=== PATIENT | female | born 1950 | race African-American/Black ===

== ENCOUNTER 2016-09-14 15:34 | Observation (INO) | payer OTHER ==
--- NOTE | ~2016-09-14 | HP ---
History And Physical [id number] [place]. [address] NAME: GABRIELA STEVENS : 48 STATUS : ADM Mayito PAT#: [id number] AGE: 65 ADM/REG DATE : 09/15/16 MR#: [id number] REPORT SERV DATE: 09/15/16 DICTATED BY: MARÍA QUICK DATE: 09/15/16 REPORT STATUS : Draft TRANSCRIBED BY: GALEN DATE: 09/15/16 DATE OF ADMISSION: 09/15/2016 CHIEF COMPLAINT: A 65-year-old female presenting with right arm paresthesias, right leg weakness, and blurry vision. HISTORY OF PRESENT ILLNESS: The patient's history was obtained through careful interview with the patient, coupled with review of [facility] medical records. The patient states "I have been feeling bad for two years." She states she has had urinary tract infections, coronary artery disease, and strokes. She has been evaluated at [facility] through these last two years for various problems as mentioned above. But it was just at 1:30 in the afternoon leading up to the day of admission that she developed right arm paresthesias and then increasing right arm weakness. She states that she has been unable to hold anything heavier than a glass of water and then she has had a gait disturbance with subjective right leg paresthesias and weakness as well. She thinks that she has had a slight facial droop on the right side with a numbness feeling on the right side as well. She states she has had blurriness of vision, but no double vision, no dysarthria, no dysphagia. She describes a headache around the back of her right head radiating up into her right jehovah's witness into her forehead, mostly behind the ear, a throbbing quality, 9/10 severity. No chest pain. No shortness of breath. No cough. No fevers or chills. REVIEW OF SYSTEMS: Otherwise, a 14-point review of systems was obtained and was negative. PAST MEDICAL HISTORY: 1. Stroke. 2. Hypertension. 3. Elevated cholesterol. 4. Diabetes. 5. Coronary artery disease, but she does not believe she has had a stent placed. 6. Seizure disorder, on Keppra. PAST SURGICAL HISTORY: 1. Back tumor removed x2. 2. Cervical spine surgery x2. 3. Lumbar spine fusion. 4. Shoulder surgery. 5. Wrist surgery for "a Bible knot". History And Physical [address] [address] NAME: GABRIELA STEVENS : [birth year] STATUS : ADM Mayito PAT#: [id number] AGE: 65 ADM/REG DATE : 09/15/16 MR#: [id number] REPORT SERV DATE: 09/15/16 DICTATED BY: MARÍA QUICK DATE: 09/15/16 REPORT STATUS : Draft TRANSCRIBED BY: GALEN DATE: 09/15/16 ALLERGIES: TO SULFA. SOCIAL HISTORY: The patient smokes cigarettes. Quit alcohol. Lives with a niece. No children. FAMILY HISTORY: Diabetes, heart disease, stroke, and alcoholism. CURRENT MEDICATIONS: 1. Eliquis 5 mg p.o. b.i.d. 2. Iron supplement. 3. Lasix 20 mg p.o. daily. 4. Neurontin 600 mg p.o. t.i.d. 5. Hydrocodone eyedrops. 6. Keppra 500 mg in the morning and 1000 mg at bedtime. 7. Lisinopril 40 mg p.o. daily. 8. Lopressor 50 mg p.o. b.i.d. 9. Prilosec 40 mg p.o. daily. 10.Zofran p.r.n. 11.Potassium 10 mEq every other day. 12.Zoloft 50 mg p.o. daily. 13.Zocor 40 mg p.o. daily. 14.Zanaflex at bedtime. 15.Topamax 50 mg at bedtime. PHYSICAL EXAMINATION: VITAL SIGNS: Temperature 98.6, pulse 54, blood pressure 179/91, respiratory rate 16, and O2 saturation 100% on room air. GENERAL: A pleasant, cooperative female, in no evidence of acute distress. NEUROLOGICAL: Cranial nerves 2 through 12 are intact and symmetrical on my exam. The patient has 4/5 strength in the right upper extremity compared to 5/5 strength in the left upper extremity. She has 5/5 strength in lower extremities that are symmetrical. She has 2+ deep tendon reflexes in upper and lower extremities that are symmetrical. HEENT: Pupils equal, round, and reactive to light. No conjunctival pallor. No scleral icterus. Nares are patent. Oropharynx is clear of obstruction. Moist mucous membranes. NECK: Trachea midline. No thyromegaly. LYMPH: No cervical lymphadenopathy. No supraclavicular lymphadenopathy. RESPIRATORY: Clear to auscultation at bases. No wheezes, rales, or rhonchi. Normal respiratory effort. CARDIOVASCULAR: Bradycardic, regular rhythm. No murmurs, rubs, or gallops. No extremity edema is appreciated. ABDOMEN: Soft, nontender, and nondistended. Normal bowel sounds auscultated throughout. No hepatosplenomegaly. DERMATOLOGICAL: Warm and dry extremities. No pallor. No cyanosis. PSYCHIATRIC: Normal affect. Good mood. Alert and oriented x3. LABORATORY DATA: White blood cell count 6.0, hemoglobin 10, hematocrit 36, and platelets History And Physical [address] [address] NAME: GABRIELA STEVENS : [birth year] STATUS : ADM Mayito PAT#: [id number] AGE: 65 ADM/REG DATE : 09/15/16 MR#: [id number] REPORT SERV DATE: 09/15/16 DICTATED BY: MARÍA QUICK DATE: 09/15/16 REPORT STATUS : Draft TRANSCRIBED BY: MODAshish DATE: 09/15/16 136. Sodium 144, potassium 3.3, chloride 110, bicarb 27, BUN 14, creatinine 0.82, and glucose 93. INR 1.5. Troponin negative. STUDIES: 1. Chest x-ray by my own evaluation shows no acute cardiopulmonary process. 2. EKG by my own evaluation shows sinus bradycardia, premature atrial complexes, left axis deviation. 3. CT scan of the brain without contrast shows no acute intracranial process. 4. CT scan of the abdomen and pelvis shows no acute intraabdominal process. ASSESSMENT AND PLAN: 1. Transient ischemic attack with right-sided paresthesias and weakness. The patient is on Eliquis. Obtain a Neurology consult. Check an MRI of the brain, MRA of the carotids. Check an echocardiogram. Check fasting lipid panel. Check telemetry. 2. Diabetes. Check hemoglobin A1c. Place on sliding scale insulin. 3. History of coronary artery disease. Request records from [facility]. NATY/MODL María Quick M.D. / [id number] CC: Maia Valverde MD
--- NOTE | ~2016-09-14 | DS ---
Discharge Summary [id number] [place]. [address] NAME: GABRIELA STEVENS : 48 STATUS : DIS Mayito PAT#: [id number] AGE: 65 ADM/REG DATE : 09/15/16 MR#: [id number] REPORT SERV DATE: 09/18/16 DICTATED BY: DATE: REPORT STATUS : Draft TRANSCRIBED BY: MODL DATE: 09/17/16 ADMISSION DATE: 09/15/2016 DISCHARGE DATE: 09/17/2016 DISCHARGE DIAGNOSES: 1. Transient ischemic attack, history of old cerebrovascular accident. 2. Hypertension. 3. Bradycardia. 4. Vitamin D deficiency. 5. History of atrial fibrillation. 6. Hypokalemia. 7. Anemia. 8. Diabetes mellitus type 2. 9. History of rapid weight loss. 10.Migraines. CONSULTATIONS: Neurology, Nathaly Bill and Dr. Sommers. PROCEDURES AND IMAGIN. 09/14/2016, chest PA and lateral showed no acute cardiopulmonary process. 2. 09/14/2016, CT of the brain without contrast showed atrophy with evidence for old left cerebellar infarct. 3. 09/14/2016, CT of the abdomen and pelvis without contrast showed no high-grade GI or obstruction. Question significance of some mildly radiopaque material within the stomach, whether this represents simply ingested food or medication versus evidence for some bleeding into the stomach. 4. 09/15/2016, MRI of the brain with MRI and MRA of the neck with contrast showed no acute finding in the brain parenchyma. Prior infarcts, left cerebellar hemisphere without other abnormalities. Very limited MRA of the [place] due to motion. There is a 50% stenosis of the right distal ICA and left M2 inferior branch stenosis. No significant stenosis in the neck. 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 5. 09/16/2016, MRI of the cervical spine with and without contrast showed small midline herniation at C4-C5. Fairly marked compression of the exiting left C7 nerve root secondary to spondylolytic changes. Small amount of spondylolytic encroachment at C5- C6 into the left neural foramina, could explain intermittent left C6 root pathology. HOSPITAL COURSE: Please refer to the H and P on 09/15/[address] Jeff Meehan for complete details regarding the patient's admission. In brief, the patient was admitted by Dr. Meehan for an initial workup and management of her right arm paresthesias and right leg weakness as well as blurry vision. The patient had developed some right arm paresthesia and then increasing right arm weakness on the day prior to admission. States she has also had some gait disturbance with right leg paresthesia and weakness as well. The patient is on Eliquis for chronic atrial fibrillation. The patient has a history of chronic migraines for which she is on Keppra, Topamax, Neurontin, and Discharge Summary [address] [address] NAME: GABRIELA STEVENS : 48 STATUS : DIS Mayito PAT#: [id number] AGE: 65 ADM/REG DATE : 09/15/16 MR#: [id number] REPORT SERV DATE: 09/18/16 DICTATED BY: DATE: REPORT STATUS : Draft TRANSCRIBED BY: MODL DATE: 09/17/16 hydrocodone. The patient states she had a history of rapid weight loss due to extensive nausea and vomiting prior to 08/20/2016. At that time, the patient was referred to GI, who started her on Zofran, and the patient states she has only had two episodes of nausea and vomiting since then and has started to gain weight again. The patient has had extensive imaging due to her TIA, rule out old CVA. Neurology was researching her possible hemiparesis versus her complicated migraines. It was determined that the most likely cause for her hemiparesis was complicated migraines. She has increased her Topamax to 100 mg at bedtime. Is recommending changing Keppra to Depakote. She also recommends to continue beta patel and follow up with Dr. Alicea on an outpatient basis. The patient does have vitamin D deficiency with her vitamin D level being 11. The patient was given an initial bolus dose and is recommending for the patient to be on 50,000 units every seven days. The patient's phosphorus is 4.0, alkaline phosphatase is 99, PTH is 36.5. The patient has a history of atrial fibrillation, for which she is on Eliquis and high-dose beta patel. This causes the patient to have bradycardia in the low 50s. During this time, the patient was also experiencing hypertension. Catapres patch of 0.2 mg was placed on the patient's arm and the patient was still receiving hydralazine IV on a regular basis. The blood pressure at that time was in the high 170s to 180s over 100. The patient has since been started on amlodipine 5 mg daily and blood pressure has been maintaining in the 160s systolically. The patient also was experiencing hypokalemia during her stay. We have increased her home dose of 10 mEq of potassium every other day to daily. The patient has a baseline anemia of 10.2 with hematocrit of 33.8. The patient has a history of diabetes mellitus type 2 for which she takes no medication. A1c is 5.5. PHYSICAL EXAMINATION: The patient states no numbness or tingling today. Chronic back pain is 3/10 with minimal headache. VITAL SIGNS: Blood pressure is 166/93, O2 saturation is 98% on room, temperature is 97.7, heart rate is 49, respirations are 11. HEENT: Head is atraumatic, normocephalic. Pupils are equal, round, reactive to light and accommodation. Sclerae are clear and nonicteric. NECK: Supple with no obvious lymphadenopathy or thyromegaly. Neck veins are flat. CARDIAC: The patient has a bradycardic rhythm with no obvious murmurs, rubs, or gallops. LUNGS: Clear to auscultation with normal respiratory effort. GI: Abdomen is soft and nontender with active bowel sounds in all four quadrants. Normal bowel habitus. No palpable organomegaly. EXTREMITIES: No significant edema, clubbing, or cyanosis. Dorsalis pedis and posterior tibial pulses are palpable bilaterally. MUSCULOSKELETAL: Moves all extremities x4. She is ambulatory with a cane. SKIN: Skin is warm and dry with normal color and turgor. NEURO/PSYCH: The patient is alert and oriented x4, pleasant cooperative. Cranial nerves II through XII are grossly intact. DISCHARGE MEDICATIONS: Amlodipine 5 mg p.o. daily; Eliquis 5 mg every 12 hours; vitamin D 50,000 units every seven days, last dose was 09/16/2016; ferrous sulfate 325 mg daily; Lasix 20 mg daily; gabapentin 600 mg three times daily; Keppra mg every morning and 1000 mg after supper; Xalatan one drop in both eyes at bedtime, lisinopril 40 mg before Discharge [address] [place]. [address] NAME: GABRIELA STEVENS : 48 STATUS : DIS Mayito PAT#: [id number] AGE: 65 ADM/REG DATE : 09/15/16 MR#: [id number] REPORT SERV DATE: 09/18/16 DICTATED BY: DATE: REPORT STATUS : Draft TRANSCRIBED BY: MODAshish DATE: 09/17/16 lunch; Lopressor 50 mg twice daily, hold for heart rate less than or equal to 50; omeprazole 40 mg daily; potassium chloride 10 mEq daily; Zoloft 50 mg daily; Zocor 40 mg daily; Zanaflex 8 mg daily; Topamax 100 mg daily; [place] 10/325 one tablet twice daily as needed for pain; Zofran 4 mg q.6 hours p.r.n. nausea and vomiting. ALLERGIES: THE PATIENT HAS AN ALLERGY TO SULFA, PINEAPPLE, AND STRAWBERRIES. DISCHARGE INSTRUCTIONS: The patient is to follow up with her PCP, Dr. Carr, in the next week. The patient is also to follow up with neurologist, Dr. Alicea, within the next week. Should the patient develop any more weakness or change in gait or extremes in headache or have any other signs and symptoms or falls, she is to call her PCP or Dr. Alicea or to present to the ER. Approximately 40 minutes has been spent coordinating discharge care of this patient including [id number] encounter and summarization of this discharge. LEANNA/GALEN Pili Lind NP / [id number] CC: Maia Yap MD
--- NOTE | ~2016-09-14 | CN ---
Consultation Report [facility] [address] [place]. [address] NAME: GABRIELA STEVENS : 48 STATUS : ADM Mayito PAT#: [id number] AGE: 65 ADM/REG DATE : 09/15/16 MR#: [id number] REPORT SERV DATE: 09/15/16 DICTATED BY: NATHALY CASTILLO DATE: 09/15/16 REPORT STATUS : Draft TRANSCRIBED BY: MODAshish DATE: 09/15/16 NEUROLOGY CONSULTATION DATE OF CONSULTATION: 09/15/2016 REASON FOR CONSULTATION: TIA. NEUROLOGIST: Dr. Sommers. HOSPITALIST: Dennis Hannon M.D. TOOL AND DIE MAKER/DESIGNER: Yan Juarez D.O. HISTORY OF PRESENT ILLNESS: The patient is a 65-year-old female, who has had intermittent numbness and weakness on her right side for approximately two months. She states that this numbness is intermittent. It will affect her right arm and right leg and of the right side of her face. It will last anywhere from one minute to approximately 10 minutes and then resolve. Sometimes, it is more profound and it is associated with irregular and rapid heartbeat. She does have a history of atrial fibrillation. She denies any ataxia. She denies any dysarthria or visual changes. At times, she will have slight expressive aphasia. The patient finally went to see her PCP and he suggested that she go to the emergency department for further evaluation and treatment. She went to [facility] and had some testing done, which came back negative for stroke. Still her symptoms persisted, so she came to [facility] Emergency Department, and was admitted to the clinical decision unit. The patient states that she has felt bad for two years. Over the last 40 days, she has lost 62 pounds. The patient also mentions that she has a history of migraines. She is on Keppra, Topamax, and Neurontin for migraine prevention. She does not take any prescription medications for abortive therapy. She tries to avoid using any over the counter medications for abortive therapy. She denies any history of seizure. PAST MEDICAL HISTORY: Left cerebellar stroke, hypertension, hyperlipidemia, diabetes mellitus, coronary artery disease, migraine headaches, cigarette abuse, atrial fibrillation, and obstructive sleep apnea (patient noncompliant with CPAP), obesity. PAST SURGICAL HISTORY: "Back tumor removal x2" (type unknown), cervical spine surgery x2, lumbar fusion, and rotator cuff repair. MEDICATIONS: Home medication list includes Eliquis 5 mg b.i.d., ferrous sulfate 325 mg q.a.m., Lasix 20 mg q.a.m., Neurontin 600 mg t.i.d., [place] 10/325 mg b.i.d. p.r.n., Xalatan ophthalmic solution 0.005% each eye at bedtime, Keppra 500 mg in the morning and 1000 mg at Consultation Report [id number] [place]. [address] NAME: GABRIELA STEVENS : 48 STATUS : ADM Mayito PAT#: [id number] AGE: 65 ADM/REG DATE : 09/15/16 MR#: [id number] REPORT SERV DATE: 09/15/16 DICTATED BY: NATHALY CASTILLO DATE: 09/15/16 REPORT STATUS : Draft TRANSCRIBED BY: GALEN DATE: 09/15/16 night, lisinopril 40 mg q.a.m., Lopressor 50 mg b.i.d., Prilosec 40 mg q.a.m., Zofran ODT 4 mg q.6 hours p.r.n., Klor-Con 10 mEq every other day, Zoloft 50 mg q.a.m., Zocor 40 mg at bedtime, Zanaflex 8 mg at bedtime, and Topamax 50 mg at bedtime. ALLERGIES: SULFA, PINEAPPLE, AND STRAWBERRY. SOCIAL HISTORY: The patient is single. She has no children. She lives with her niece. She is a smoker. She has a history of alcohol abuse and does not use illicit drugs. FAMILY HISTORY: The patient's mother from an [place]; she was diabetic. Her father had TB; he also had history of alcohol abuse. She has 12 siblings; she was the baby. REVIEW OF SYSTEMS: For pertinent positives, please refer to HPI. PHYSICAL EXAMINATION: VITAL SIGNS: The patient is a 65-year-old female, who stands 5 feet 10 inches tall and weighs 202 pounds. She is afebrile. Heart rate 58, respiratory rate 10, O2 saturations on 2 L nasal cannula 100%, blood pressure 164/84. NEURO: The patient is alert. She is oriented x4. She communicates appropriately. Speech is clear. Language is fluent. There is no dysarthria, no aphasia. Pupils are 4 mm. PERRLA. Cranial nerves 2 through 12 are relatively intact. However, the patient does report diminished sensation on the right side of her face compared to the left. There is no facial droop. No tongue deviation. Vision via confrontation is full in both lyons. [id number], no ataxia. [id number], no ataxia. There is very mild pronator drift on the right. No tremor, dysmetria, asterixis, or dysdiadochokinesis. Upper extremity strength is 4/5 on the right compared to the left which is 5/5. Upper DTRs are 2+ bilaterally. The patient does report diminished sensation on the right when compared to the left. Lower extremity strength is a 4/5 on the left and 3/5 on the right. Lower extremity DTRs are 2+ bilaterally. Downgoing toes. The patient reports diminished sensation on the right when compared to the left. NECK: No carotid bruits or JVD. No thyromegaly. CHEST: Lung sounds relatively clear. Diminished in the bases. CARDIAC: Regular rate and rhythm. No murmur, click, gallop, or rub. LABORATORY DATA: CBC is normal. Platelets mildly low at 137. BMP: Potassium is 3.6. Cholesterol values: Total cholesterol 126, HDL 24, LDL 77, and triglycerides 127. A1c 5.5. CT of the brain, no acute changes. There is an old left cerebellar infarction. NIH stroke scale is a total score of 3. ASSESSMENT/PLAN: 1. Probable stroke. The patient will undergo an MRI of the brain without gadolinium and an MRA of the head and neck. She will have an echocardiogram with bubble study. PT/OT will be consulted. The patient will have a bedside dysphagia screen. If she fails this, then Speech Therapy will be consulted. She will have additional lab work. Case Consultation Report [address] [place]. [address] NAME: GABRIELA STEVENS : 48 STATUS : ADM Mayito PAT#: [id number] AGE: 65 ADM/REG DATE : 09/15/16 MR#: [id number] REPORT SERV DATE: 09/15/16 DICTATED BY: NATHALY CASTILLO DATE: 09/15/16 REPORT STATUS : Draft TRANSCRIBED BY: GALEN DATE: 09/15/16 Management will be consulted for the possibility of rehabilitation. She will continue her Eliquis 5 mg b.i.d., aspirin 81 mg daily will be added, and her Zocor will be increased to 80 mg at bedtime. 2. Migraine. The patient will continue her preventative medication. I did talk to her about rebound headache from taking narcotics on a daily basis and avoidance of over-the- counter abortive medication. 3. Atrial fibrillation. The patient will follow up with Dr. Juarez on an outpatient basis. Currently, she is in normal sinus rhythm. Thank you again for including us in consultation. We will continue to follow with you. CHRISSY/GALEN Nathaly Castillo DNP, ACNP-BC / [id number] CC: Maia Valverde MD
[2016-09-14 16:34] LABS: BASOPHILS 0.5 %; BASOPHILS ABSOLUTE 0.03 10/3/uL (0.0-0.16); EOSINOPHILS 3.2 %; EOSINOPHILS ABSOLUTE 0.19 10/3/uL (0.0-0.53); ER CBC TAT 0 Hrs 14 Mins; HEMOGLOBIN 10.3 g/dL (12.0-16.0); IMMATURE GRANULOCYTES 0.2 %; IMMATURE GRANULOCYTES ABSOLUTE 0.01 10/3/uL (0.0-0.11); LYMPHOCYTES 34.6 %; LYMPHOCYTES ABSOLUTE 2.08 10/3/uL (0.67-4.30); MEAN CORPUSCULAR HEMOGLOB 23.3 pg (26.0-34.0); MEAN CORPUSCULAR VOLUME 80.1 fL (80-100); MONOCYTES ABSOLUTE 0.54 10/3/uL (0.21-1.20); NEUTROPHILS 52.5 %; NEUTROPHILS ABSOLUTE 3.17 10/3/uL (2.02-8.40); PLATELET COUNT 136 10/3/uL (150-400); RBC DISTRIBUTION WIDTH 23.5 % (12.0-16.0); RED CELL COUNT 4.43 10/6/uL (4.0-5.6)
[2016-09-14 16:36] LABS: PARTIAL THROMBO TIME 33.2 SEC (22.5-37.2)
[2016-09-14 16:37] LABS: INTERNATIONAL NORMAL RATI 1.5 UNITS (-); PROTIME (NOT ORD) 18.2 SEC (12.0-14.5)
[2016-09-14 16:41] LABS: HEMATOCRIT 35.5 % (36.0-48.0); MANUAL DIFF NO %
[2016-09-14 16:44] LABS: BUN (BLOOD UREA NITROGEN) 14 MG/DL (6-23); CALCIUM, SERUM 9.1 MG/DL (8.5-10.4); CHEST PAIN PROFILE TAT 0 Hrs 24 Mins; CHLORIDE, SERUM 110 MMOL/L (96-112); CO2 (CARBON DIOXIDE) 27 MMOL/L (24-34); CREATININE 0.82 MG/DL (0.55-1.02); GFR AFRICAN AMERICAN 86 ML/MIN (>=60); GFR NON AFRICAN AMERICAN 75 ML/MIN (>=60); GLUCOSE, SERUM 93 MG/DL (60-99); POTASSIUM, SERUM 3.3 MMOL/L (3.5-5.3); SODIUM, SERUM 144 MMOL/L (135-148); TROPONIN I <0.02 NG/ML (<0.05)
[2016-09-14 17:17] LABS: PLATELET ESTIMATE SLT DEC (ADEQUATE); PLATELET SATELLITISM FEW
[2016-09-14] MEDS ORDERED: NEUR600 PO (21:03)
[2016-09-14] MEDS ORDERED: KEPPRA500 PO ×2 (21:04)
[2016-09-14] MEDS ORDERED: ZOL50 PO (21:04)
[2016-09-14] MEDS ORDERED: LISINOPRIL40 MG PO (21:05)
[2016-09-14] MEDS ORDERED: ELIQUIS 5 MG TAB5 MG PO (21:06)
[2016-09-14] MEDS ORDERED: FERROUS SULF325 M1 PO (21:07)
[2016-09-14] MEDS ORDERED: ZANAFLEX 4 MG TA4 MG PO (21:08)
[2016-09-14] MEDS ORDERED: NORCO1 TAB PO (21:08)
[2016-09-14] MEDS ORDERED: TOPAMAX50 MG PO (21:09)
[2016-09-14] MEDS ORDERED: PRILOSEC40 MG PO (21:09)
[2016-09-14] MEDS ORDERED: ZOFRAN ODT4 MG PO (21:10)
[2016-09-14] MEDS ORDERED: LOP50 PO (21:11)
[2016-09-14] MEDS ORDERED: XALAT OPH (21:12)
[2016-09-14] MEDS ORDERED: KDUR10 PO (21:14)
[2016-09-14] MEDS ORDERED: L20 PO (21:15)
[2016-09-14] MEDS ORDERED: ZOCOR40 PO (21:15)
[2016-09-15 04:41] LABS: BASOPHILS 0.4 %; BASOPHILS ABSOLUTE 0.03 10/3/uL (0.0-0.16); EOSINOPHILS 3.8 %; EOSINOPHILS ABSOLUTE 0.26 10/3/uL (0.0-0.53); HEMATOCRIT 32.8 % (36.0-48.0); HEMOGLOBIN 9.7 g/dL (12.0-16.0); IMMATURE GRANULOCYTES 0.1 %; IMMATURE GRANULOCYTES ABSOLUTE 0.01 10/3/uL (0.0-0.11); LYMPHOCYTES 32.8 %; LYMPHOCYTES ABSOLUTE 2.25 10/3/uL (0.67-4.30); MEAN CORPUS HGB CONC 29.6 g/dL (32.0-36.0); MEAN CORPUSCULAR HEMOGLOB 23.7 pg (26.0-34.0); MEAN CORPUSCULAR VOLUME 80.2 fL (80-100); MONOCYTES 8.9 %; MONOCYTES ABSOLUTE 0.61 10/3/uL (0.21-1.20); PLATELET COUNT 137 10/3/uL (150-400); RBC DISTRIBUTION WIDTH 23.4 % (12.0-16.0); RED CELL COUNT 4.09 10/6/uL (4.0-5.6); WHITE BLOOD CELLS 6.9 10/3/uL (4.5-10.5)
[2016-09-15 04:42] LABS: MANUAL DIFF NO %
[2016-09-15 04:49] LABS: INTERNATIONAL NORMAL RATI 1.3 UNITS (-); PARTIAL THROMBO TIME 32.2 SEC (22.5-37.2); PROTIME (NOT ORD) 16.3 SEC (12.0-14.5)
[2016-09-15 05:04] LABS: A/G RATIO 0.9 (0.7-1.9); ALBUMIN 3.1 G/DL (3.5-5.0); BUN (BLOOD UREA NITROGEN) 12 MG/DL (6-23); CALCIUM, SERUM 8.6 MG/DL (8.5-10.4); CHLORIDE, SERUM 111 MMOL/L (96-112); CHOL/HDL RATIO(NOT ORDER) 5.3 (0-5); CHOLESTEROL 126 MG/DL (< 200); CO2 (CARBON DIOXIDE) 27 MMOL/L (24-34); CPK (IF ELEVATED MB BANDS) 60 U/L (0-200); CREATININE 0.77 MG/DL (0.55-1.02); GFR AFRICAN AMERICAN 93 ML/MIN (>=60); GFR NON AFRICAN AMERICAN 80 ML/MIN (>=60); GLOBULIN 3.4 G/DL (2.5-4.1); HDL CHOLESTEROL 24 MG/DL (> 49); LDL CHOLESTEROL 77 MG/DL (< 130); NON-HDL CHOLESTEROL 102 MG/DL (< 160); SGOT(AST) 33 U/L (5-40); SGPT(ALT) 29 U/L (5-65); SODIUM, SERUM 145 MMOL/L (135-148); TOTAL BILIRUBIN 0.4 MG/DL (0-1.2); TOTAL PROTEIN 6.5 G/DL (6.0-8.5); TRIGLYCERIDE 127 MG/DL (< 150); TROPONIN I <0.02 NG/ML (<0.05)
[2016-09-15 05:07] LABS: ALKALINE PHOSPHATASE 137 U/L (45-117); GLUCOSE, SERUM 112 MG/DL (60-99); POTASSIUM, SERUM 2.8 MMOL/L (3.5-5.3); ULTRASENSITIVE TSH 0.916 MCIU/ML (0.358-3.740)
[2016-09-15 05:14] LABS: BAND NEUTROPHILS 1 %; BASOPHILS 1 %; BASOPHILS ABSOLUTE (CALC) 0.07 10/3/uL (0.0-0.16); EOSINOPHILS 5 %; EOSINOPHILS ABSOLUTE (CALC) 0.35 10/3/uL (0.0-0.53); LYMPHOCYTES 35 %; LYMPHOCYTES ABSOLUTE (CALC) 2.42 10/3/uL (0.67-4.30); MONOCYTES 1 %; MONOCYTES ABSOLUTE (CALC) 0.07 10/3/uL (0.21-1.20); SEGMENTED NEUTROPHIL (0) 57 %; TOTAL NUCLEATED CELLS 100
[2016-09-15 05:15] LABS: PLATELET ESTIMATE SLT DEC (ADEQUATE)
[2016-09-15 10:22] LABS: POTASSIUM, SERUM 3.6 MMOL/L (3.5-5.3)
[2016-09-15 13:13] LABS: FOLATE 16.2 NG/ML (>5.2)
[2016-09-15 13:41] LABS: ASCORBIC ACID (UR NOT ORDER) NEG (NEG); BILIRUBIN, URINE NEGATIVE (NEG); KETONE, URINE NEGATIVE (NEG); LEUKOCYTE ESTERASE(NOT OR NEG (NEG); WBC (NOT ORDERED) (RFLEX) 1 (0-5)
[2016-09-16 04:33] LABS: BASOPHILS 0.4 %; BASOPHILS ABSOLUTE 0.02 10/3/uL (0.0-0.16); EOSINOPHILS 4.1 %; HEMATOCRIT 32.9 % (36.0-48.0); HEMOGLOBIN 9.9 g/dL (12.0-16.0); IMMATURE GRANULOCYTES 0.2 %; IMMATURE GRANULOCYTES ABSOLUTE 0.01 10/3/uL (0.0-0.11); LYMPHOCYTES 37.6 %; LYMPHOCYTES ABSOLUTE 1.81 10/3/uL (0.67-4.30); MEAN CORPUS HGB CONC 30.1 g/dL (32.0-36.0); MEAN CORPUSCULAR HEMOGLOB 24.1 pg (26.0-34.0); MONOCYTES 8.9 %; MONOCYTES ABSOLUTE 0.43 10/3/uL (0.21-1.20); NEUTROPHILS 48.8 %; NEUTROPHILS ABSOLUTE 2.35 10/3/uL (2.02-8.40); PLATELET COUNT 136 10/3/uL (150-400); RBC DISTRIBUTION WIDTH 23.4 % (12.0-16.0); RED CELL COUNT 4.11 10/6/uL (4.0-5.6); WHITE BLOOD CELLS 4.8 10/3/uL (4.5-10.5)
[2016-09-16 04:36] LABS: MANUAL DIFF NO %
[2016-09-16 04:47] LABS: BUN (BLOOD UREA NITROGEN) 10 MG/DL (6-23); CALCIUM, SERUM 9.3 MG/DL (8.5-10.4); CHLORIDE, SERUM 110 MMOL/L (96-112); CO2 (CARBON DIOXIDE) 28 MMOL/L (24-34); CREATININE 0.73 MG/DL (0.55-1.02); GFR AFRICAN AMERICAN 99 ML/MIN (>=60); GFR NON AFRICAN AMERICAN 86 ML/MIN (>=60); POTASSIUM, SERUM 3.8 MMOL/L (3.5-5.3); SODIUM, SERUM 143 MMOL/L (135-148)
[2016-09-16 04:48] LABS: GLUCOSE, SERUM 180 MG/DL (60-99)
[2016-09-16 06:10] LABS: ELLIPTOCYTES 1+ (3-10/OIF) (0-2/OIF); HYPOCHROMIA 1+ (3-10/OIF) (0-2/OIF); PLATELET ESTIMATE SLT DEC (ADEQUATE)
[2016-09-16 06:11] LABS: TEARDROP SHAPED RBCS OCC (0-2/OIF)
[2016-09-17 04:20] LABS: BASOPHILS 0.7 %; BASOPHILS ABSOLUTE 0.03 10/3/uL (0.0-0.16); EOSINOPHILS 4.9 %; EOSINOPHILS ABSOLUTE 0.22 10/3/uL (0.0-0.53); HEMATOCRIT 33.8 % (36.0-48.0); HEMOGLOBIN 10.2 g/dL (12.0-16.0); IMMATURE GRANULOCYTES 0.2 %; IMMATURE GRANULOCYTES ABSOLUTE 0.01 10/3/uL (0.0-0.11); LYMPHOCYTES 38.4 %; LYMPHOCYTES ABSOLUTE 1.72 10/3/uL (0.67-4.30); MEAN CORPUS HGB CONC 30.2 g/dL (32.0-36.0); MEAN CORPUSCULAR HEMOGLOB 24.1 pg (26.0-34.0); MEAN CORPUSCULAR VOLUME 79.7 fL (80-100); MONOCYTES ABSOLUTE 0.36 10/3/uL (0.21-1.20); NEUTROPHILS 47.8 %; NEUTROPHILS ABSOLUTE 2.14 10/3/uL (2.02-8.40); PLATELET COUNT 136 10/3/uL (150-400); RBC DISTRIBUTION WIDTH 23.2 % (12.0-16.0); RED CELL COUNT 4.24 10/6/uL (4.0-5.6); WHITE BLOOD CELLS 4.5 10/3/uL (4.5-10.5)
[2016-09-17 04:23] LABS: MANUAL DIFF NO %
[2016-09-17 04:38] LABS: PLATELET ESTIMATE SLT DEC (ADEQUATE)
[2016-09-17 04:39] LABS: MACROCYTES 1+ (5-10/OIF) (0-5/OIF); TEARDROP SHAPED RBCS OCC (0-2/OIF)
[2016-09-17 04:40] LABS: CALCIUM, SERUM 9.3 MG/DL (8.5-10.4); CHLORIDE, SERUM 109 MMOL/L (96-112); CO2 (CARBON DIOXIDE) 26 MMOL/L (24-34); CREATININE 0.75 MG/DL (0.55-1.02); GFR AFRICAN AMERICAN 96 ML/MIN (>=60); GFR NON AFRICAN AMERICAN 83 ML/MIN (>=60); GLUCOSE, SERUM 153 MG/DL (60-99); POTASSIUM, SERUM 4.1 MMOL/L (3.5-5.3); SODIUM, SERUM 142 MMOL/L (135-148)
[2016-09-17 04:41] LABS: ALKALINE PHOSPHATASE 99 U/L (45-117); BUN (BLOOD UREA NITROGEN) 14 MG/DL (6-23)
[2016-09-17 04:54] LABS: INTACT PTH (ICMA) 36.5 PG/ML (10.0-65.0)
[2016-09-17] MEDS ORDERED: NORV5 PO (13:49)
[2016-09-17] MEDS ORDERED: D 5000 PO (13:50)
[2016-09-18 23:24] LABS: TISSUE TRANSGLUTAMINASE AB IGA 1.8 U/mL (<15.0); TISSUE TRANSGLUTAMINASE AB IGG <0.8 U/mL (<15.0)
[2016-12-26] MEDS ORDERED: CINNAMONPO PO (14:41)
[2016-12-26] MEDS ORDERED: XALAT OPH (14:43)
[2016-12-26] MEDS ORDERED: MAXITOINT OPH (14:43)
== END 2016-09-17 14:29 | disposition home health service (06) ==
LOC: ER 15:34 → CDU1 09-15 00:07
PROVIDERS: Hospitalist; Internal Medicine; Nurse Practitioner Family
DX: G45.9 Transient cerebral ischemic attack, unspecified (principal); I10 Essential (primary) hypertension; I48.91 Unspecified atrial fibrillation; E78.00 Pure hypercholesterolemia, unspecified; E11.9 Type 2 diabetes mellitus without complications; I25.10 Atherosclerotic heart disease of native coronary artery without angina pectoris; F17.200 Nicotine dependence, unspecified, uncomplicated; G40.909 Epilepsy, unspecified, not intractable, without status epilepticus; E55.9 Vitamin D deficiency, unspecified; D64.9 Anemia, unspecified; G43.909 Migraine, unspecified, not intractable, without status migrainosus; Z88.2 Allergy status to sulfonamides; Z79.899 Other long term (current) drug therapy; Z86.73 Personal history of transient ischemic attack (TIA), and cerebral infarction without residual deficits; K92.2 Gastrointestinal hemorrhage, unspecified
CPT/HCPCS: 70450; 70544; 70548; 70551-52; 71020; 72156; 74176; 80048; 80053; 80061; 81001; 82306; 82533; 82550; 82607; 82746; 82962; 83036; 83516; 83735; 83970; 84075; 84100; 84132; 84443; 84484; 85025; 85610; 85652; 85730; 86140; 93005; 93306; 97161-GP; 97165-GO; 99285; A9270-GY; A9577; G0378

== ENCOUNTER 2016-10-09 12:36 | Inpatient (IN) | payer OTHER ==
--- NOTE | ~2016-10-09 | HP ---
History And Physical [address] [place]. [address] NAME: GABRIELA STEVENS : 48 STATUS : ADM Mayito PAT#: [id number] AGE: 66 ADM/REG DATE : 10/09/16 MR#: [id number] REPORT SERV DATE: 10/09/16 DICTATED BY: MAGGIE EGAN DATE: 10/09/16 REPORT STATUS : Draft TRANSCRIBED BY: MODAshish DATE: 10/09/16 DATE OF ADMISSION: 10/09/2016 CHIEF COMPLAINT: Low blood pressure. HISTORY OF PRESENT ILLNESS: Obtained from the patient as well as from the patient's family present at bedside and emergency room documents, also prior medical records available to us were thoroughly reviewed. According to the information available, the patient is a pleasant 66-year-old black woman with history of diabetes with diet control, hypertension prior known coronary artery disease, paroxysmal atrial fibrillation, prior strokes, who actually was seen and admitted here in mid 08/2016 for paresthesias and apparently "chronic nausea" and recent weight loss history. The patient was discharged home and was seen today by home health and was noticed to have low blood pressure and therefore was sent over to the emergency room. Upon arrival in the emergency room, the patient was hypotensive with systolic blood pressure of 73, pulse of 54, feeling "funny," sleepy, dizzy, weak all over. The patient received a bolus of normal saline 500 mL in the emergency room upon arrival and since blood pressure had remained 115/43 or above in the range of 140 to 160 systolic. The patient denies any chest pain, denies any palpitations or diaphoresis, shortness of breath being on her baseline as complains of nausea and abdominal pain mostly in the right upper quadrant and epigastric, which is the chronic. The patient was in the process of being investigated by her primary care provider and by her GI for her abdominal pain and nausea, and apparently has a recent scheduled upper GI series in the upcoming weeks. The patient reportedly has been off her Eliquis for several days now as she did not have any more medications and also because she was told to hold the Eliquis for her upcoming test. Nevertheless, the patient was noticed to have Hemoccult positive stools here in the emergency room. Further investigations showed hemoglobin 11.1. BNP 340.[address] scan of the abdomen and pelvis showed no significant change from prior CT scan in 08/2016. Therefore, because of the above presentation with hypotension with Hemoccult positive stools, abdominal pain, anemia, and need of chronic anticoagulation, the patient was referred to the Hospitalist Service for further management and evaluation. Presently, the patient complains only of being hungry and also having back pain, which is her chronic back pain. PAST MEDICAL HISTORY: Significant for reported coronary artery disease apparently follow up with [facility], Dr. Juarez being the computer lab aide. No specific medical records related to her coronary artery disease available. History of paroxysmal atrial fibrillation, previously on anticoagulation with Eliquis; history of hypertension; history of moderate diastolic dysfunction and bradycardia; history of nausea mostly chronic with no vomiting and recent weight loss due to her nausea as per the patient; history of GERD; esophagitis, unspecified; history of anemia; history of chronic anticoagulation supposed to be on Eliquis, but now patient off Eliquis due to her upcoming test with upper GI series ordered and that also the patient apparently did not have a refill; history of chronic pain syndrome on account of her chronic lower back pain; history of complicated migraines; history of depression and anxiety; prior history of CVA with cerebellar stroke and cerebellar TIAs; history of diabetes type 2, not insulin dependent; history of neuropathy; history of hyperlipidemia; history of obstructive sleep apnea, but not using a CPAP machine; History And Physical [address] [address] NAME: GABRIELA STEVENS : 48 STATUS : ADM Mayito PAT#: [id number] AGE: 66 ADM/REG DATE : 10/09/16 MR#: [id number] REPORT SERV DATE: 10/09/16 DICTATED BY: MAGGIE EGAN DATE: 10/09/16 REPORT STATUS : Draft TRANSCRIBED BY: MODL DATE: 10/09/16 history of tobacco dependency disorder, the patient apparently quit smoking at the admission on 09/14/2016, apparently on nicotine replacement therapy since. PAST SURGICAL HISTORY: Significant for unspecified back tumor removed x2, cervical spine surgery x2, lumbar spine fusion, shoulder surgery, wrist surgery for "Bible knot," history of left ankle surgery for fracture, history of trigger finger surgery. SOCIAL HISTORY: She denies tobacco abuse. She used to smoke a pack of cigarettes daily until 09/14/2016. Denies alcohol abuse, but she used some alcohol in the past. Denies illicit recreational drug abuse. Lives with her niece, who is the main caregiver. No children. FAMILY HISTORY: Significant for diabetes, coronary artery disease, stroke, and history of alcoholism. ALLERGIES: SULFA ANTIBIOTICS AND ALSO TO PINEAPPLE AND STRAWBERRIES. HOME MEDICATIONS: According to the list provided, the patient is supposed to take Norvasc 5 mg p.o. daily, Eliquis 5 mg p.o. b.i.d. (altered medication for over a week now), vitamin D 5000 units p.o. daily, iron sulfate 325 mg p.o. daily, Lasix 20 mg p.o. q.a.m., Neurontin 600 mg p.o. t.i.d., hydrocodone 10/325 one p.o. b.i.d. p.r.n. pain, Xalatan ophthalmic drops one drop to each eye at bedtime, Keppra 500 mg p.o. q.a.m. and 1000 mg p.o. q.p.m., lisinopril 40 mg p.o. daily, magnesium oxide Mag-Ox 250 mg p.o. b.i.d., Lopressor 50 mg p.o. daily b.i.d. (the patient holds it when the pulse is less than 50?), nicotine patch 21 mg daily, Prilosec 40 mg p.o. q.a.m., Zofran 4 mg p.o. q.6 hours p.r.n., potassium KCl 10 mEq p.o. every other day, Zoloft 50 mg p.o. q.a.m., Zocor 40 mg p.o. at bedtime, Zanaflex 8 mg p.o. at bedtime, Topamax 100 mg p.o. at bedtime. REVIEW OF SYSTEMS: As per H and P, otherwise negative in all review of systems. Please note, the comprehensive review of system was obtained and pertinent positives are included in the H and P. PHYSICAL EXAMINATION: GENERAL: Pleasant, cooperant, pale, frail, complaining only of back pain presently. VITAL SIGNS: Upon arrival in the emergency room, blood pressure 73/48, pulse 54, respiratory rate 14, temperature 97, oxygen saturation 97% in room air. Please note that the blood pressure was up to 115/43 with 500 mL of normal saline bolus and has remained stable since. HEENT: With bilateral cataracts. Extraocular movements intact. Throat, mild erythema. No exudate. Poor dentition. No signs of tenderness. NECK: Supple. No JVD. No bruit. No thyromegaly. No lymph nodes. LUNGS: Bilateral air entry with few bibasilar rales. No wheezing. Good airway movement. No reproducible chest pain by palpation. HEART: Positive S1, S2. Regular rate and rhythm. Positive soft mitral regurgitation murmur at the apex. PMI not displaced by palpation. No rub. No gallop. ABDOMEN: Positive bowel sounds. Soft with mild right upper quadrant tenderness and epigastric tenderness. No masses. No rebound tenderness. No hepatosplenomegaly. History And Physical [address] [address] NAME: GABRIELA STEVENS : 48 STATUS : ADM Mayito PAT#: [id number] AGE: 66 ADM/REG DATE : 10/09/16 MR#: [id number] REPORT SERV DATE: 10/09/16 DICTATED BY: MAGGIE EGAN DATE: 10/09/16 REPORT STATUS : Draft TRANSCRIBED BY: GALEN DATE: 10/09/16 EXTREMITIES: Decreased range of motion. Osteoarthritic changes. No clubbing, no cyanosis, no edema. No calf tenderness. +2 pulses. NEUROLOGIC: Alert and oriented x3. Grossly nonfocal. Appropriate mood and affect. Cranial nerves 2 through 12 grossly intact. Motor strength 4 to 5/5 symmetrical bilateral. Deep tendon reflexes 2/2 symmetrical bilateral. BACK: With decreased range of motion. No focal localized tenderness. No CVA tenderness. SKIN: No bruises. No rashes. No lacerations. SIGNIFICANT LABORATORY DATA: EKG (personal reading) showed sinus bradycardia at 53 beats per minute. No acute ST elevation. Chest x-ray (personal reading) showed no acute infiltrate. Sodium 139, potassium 4.5, chloride 107, bicarb 27, BUN 20, creatinine 1.22, glucose of 201. Calcium 9.3, magnesium 2.1. Lipase 148. Troponin I less than 0.02. BNP 340. Lactate 1.2, which is within normal limits. White cell count 4.5, hemoglobin 11.1, platelet count 93. INR 1.4. CT scan of the abdomen and pelvis compared with the one done on 09/14/2016 show no acute abnormality. Gallbladder with calculi, but no inflammation (full report attached to chart and discussed with the patient and family). Urinalysis was negative for signs of infection. ASSESSMENT AND PLAN AND PROBLEM LIST: The patient is a pleasant 66-year-old black woman admitted with hypotension, quite significant and symptomatic with abdominal pain, Hemoccult- positive stool, mild anemia with history of paroxysmal atrial fibrillation. IMPRESSION: 1. Hypotension possible secondary to medications, presently resolved with IV fluids. We are going to continue to monitor CK and troponin I, monitor for any signs of hemodynamic changes "holding parameters" on her antihypertensive medication. 2. Cardiovascular. a. History of paroxysmal atrial fibrillation, chronic, now in all normal sinus rhythm. b. Hypertension, essential hypertension very labile as per the patient, presently blood pressure over 165 systolic. c. Moderate diastolic dysfunction by history. d. History of coronary artery disease apparently investigated and managed at [facility] in the past. e. Bradycardia likely secondary to medication. f. Moderate mitral regurgitation. For all the above, the patient has been continued to be monitored under monitored setting and telemetry setting. We are going to put "holding parameters" on her cardiovascular medications. The patient had an extensive cardiovascular workup during prior admission a month ago. Review 2D echo. We are going to check only bilateral renal arterial Doppler ultrasound to rule out renal artery stenosis. Consider Cardiology consultation with the patient's computer lab aide Dr. Juarez with Diagnostic Cardiology. 3. GI problem with:. a. Hematochezia, reported Hemoccult-positive stools. b. Right upper quadrant and epigastric tenderness. c. Gastroesophageal reflux disease with esophagitis, not specified. d. Chronic nausea with history of recent weight loss. The patient apparently History And Physical [address] [address] NAME: GABRIELA STEVENS : 48 STATUS : ADM Mayito PAT#: [id number] AGE: 66 ADM/REG DATE : 10/09/16 MR#: [id number] REPORT SERV DATE: 10/09/16 DICTATED BY: MAGGIE EGAN DATE: 10/09/16 REPORT STATUS : Draft TRANSCRIBED BY: MODL DATE: 10/09/16 in the process of having a GI workup. The patient is a high risk for cerebrovascular accident due to her paroxysmal atrial fibrillation, prior strokes. Therefore, we are going to perform GI workup before we restart patient Eliquis and going to obtain a GI consult. Continue to monitor with the H and H and use PPI with Protonix IV b.i.d. Treat symptomatically for her nausea and abdominal pain. Doubt gallbladder disease by symptoms and examination and imaging findings. 4. Hematologic problem. a. Anemia, multifactorial, relatively stable at this moment. Continue to monitor H and H. b. Thrombocytopenia progressive comparing with the previous admission. Uncertain etiology, continue to monitor for now. Check liver function test. c. Chronic anticoagulation with Eliquis to be restarted as indicated and after GI workup completed. 5. Neurologic problem. a. Complicated migraines with present treatment helping. Continue Topamax and Keppra. b. Chronic pain syndrome with chronic lower back pain. Continue hydrocodone p.r.n. and Zanaflex. c. Weakness, generalized. The patient also had prior extensive workup for her generalized weakness during her prior admission. d. Depression/anxiety, provide emotional support. Continue Zoloft, use p.r.n. Xanax. e. History of cerebrovascular disease with prior cerebrovascular accident and transient ischemic attack and cerebellar strokes. We are going to restart the patient's statin, consider aspirin after GI workup completely and continue Eliquis. 6. Endocrinologic problem. a. Diabetes type 2, not insulin dependent with complications. Continue to monitor sliding scale for now. The patient hemoglobin A1c 5.9% a month ago. b. Peripheral neuropathy due to underlying medical condition. Continue Neurontin and pain control. c. Hyperlipidemia mixed type. Continue Zocor, low-cholesterol diet. 7. Pulmonary. a. Tobacco dependency disorder. The patient claims to quit smoking on 09/14/2016. Going to continue nicotine patch and continue to provide support and encouragement. b. Obstructive sleep pattern by history, not using a CPAP machine at home. 8. Vitamin D deficiency. The patient to continue vitamin D supplementation. PROGNOSIS: Moderate for this admission. Discussed with the patient and patient's family present at bedside. Questions were answered in full. Please note, the patient is a full code at this moment as discussed with the patient and family. Please note, also the written H and P and written orders and instructions. RF/GALEN History And Physical [address] [place]. [address] NAME: GABRIELA STEVENS : 48 STATUS : ADM Mayito PAT#: [id number] AGE: 66 ADM/REG DATE : 10/09/16 MR#: [id number] REPORT SERV DATE: 10/09/16 DICTATED BY: MAGGIE EGAN DATE: 10/09/16 REPORT STATUS : Draft TRANSCRIBED BY: GALEN DATE: 10/09/16 Maggie Egan M.D. / [id number] CC: MD Yan June D.O. Y. Han, M.D.
--- NOTE | ~2016-10-09 | OP ---
Record Of Operation [facility] [address] [place]. [address] NAME: GABRIELA STEVENS : 48 STATUS : DIS IN PAT#: [id number] AGE: 66 ADM/REG DATE : 10/09/16 MR#: [id number] REPORT SERV DATE: 10/28/16 DICTATED BY: YAN JUAREZ DATE: 10/28/16 REPORT STATUS : Draft TRANSCRIBED BY: GALEN DATE: 10/28/16 DATE OF PROCEDURE: 10/13/2016 PRIMARY CARE PHYSICIAN: Rolando Gilliland D.O. IMPLANTATION DEVICE SUMMARY: This is a successful dual-chamber permanent pacemaker implantation for symptomatic bradycardia. There was a tined lead in the right atrial end, an active fixation lead in the right ventricle (apex). Pacemaker initial implant generator and leads with initial insertion with dual leads. ANESTHESIA: MAC INDICATIONS: Sinoatrial node dysfunction. CLINICAL PRESENTATION: Symptomatic non-reversible bradycardia secondary to SA node dysfunction and severe orthostatic hypotension resulting in near syncope. PROCEDURE DESCRIPTION: The patient was brought to the EP lab in a fasting state. The risks and benefits of the procedure were discussed with the patient beforehand and she agreed to proceed. All questions were answered. The patient was prepped in the usual fashion on the EP table. The Anesthesiology Service was present to provide monitored anesthesia care in the form of IV propofol. There is a new implant with a pulse generator placed in the left pectoral area. Device name is Estefany Travis [id number], serial number is [id number], 02/27/2018 is the expiration. Implant date is 10/13/2016. Leads: The RV lead is a new implant Medtronic SureScan CapSureFix Novus 5076-52, serial number is [id number]. Expiration, 07/14/2018. Implant date, 10/13/2016. The atrial lead is a new implant Medtronic CapSure Sense 4574-45, serial number is [id number], expiration is 06/18/2018. Implant date is 10/13/2016. Lead measurement programmed out, RV lead measured, an R-wave amplitude of 7.3 mV, threshold is 0.5 V with a pulse width of 0.5 milliseconds. Impedance 1061 ohms at a current of 0.5 mA. The right atrial lead measured a T-wave amplitude of 2.6 mV, threshold 0.5, and the pulse width was 0.5 with impedance of 725 ohms, current was 0.9 mA. DEVICE PROGRAMMING: MCPR, lower rate 70, upper rate 130, PCV above 200, sensed AV above 170. Estimated blood loss was 10 mL. Contrast is Isovue-10 mL. Percutaneous access was performed through the left axillary vein. A 7-Bermudian sheath was inserted. A "double wire technique" was utilized. Leads were positioned under fluoroscopic Record Of [address] [address] NAME: GABRIELA STEVENS : 48 STATUS : DIS IN PAT#: [id number] AGE: 66 ADM/REG DATE : 10/09/16 MR#: [id number] REPORT SERV DATE: 10/28/16 DICTATED BY: YAN JUAREZ DATE: 10/28/16 REPORT STATUS : Draft TRANSCRIBED BY: GALEN DATE: 10/28/16 guidance and after adequate sensing and pacing threshold parameters were obtained, they were sewn in place over the existing sleeves to the floor of the pacemaker pocket. The pacemaker pocket was performed after initial incision with a 10-blade, and then blunt and Bovie dissection were then used to carry the incision down to the level of the prepectoral fascia. There was some difficulty with a stick of the subclavian of the left axillary vein/subclavian system, which had a tortuous course and was relatively small vein. The pocket was expanded at the level of the prepectoral fascia and extended inferomedially. An anchor stitch was placed at the floor of the pacemaker pocket to secure the pulse generator. The leads and the pulse generator were attached using 0 Ethibond suture ligature. Each lead was tested separately and the above-mentioned patient parameters were obtained; 10 V on each leads failed to separately innovate the diaphragm, which was viewed fluoroscopically. Each serial number was identified for the leads placed in the respective ports and the pulse generator header and tightened using the torque wrench until three clicks were heard. The pulse generator system fit very comfortably in the pocket and transcutaneous interrogation was performed. Frequent rechecking of lead position with fluoroscopy was performed and once all was satisfactory, I closed the pocket with a running layer of 2-0 deep Vicryl suture and 4-0 superficial Vicryl suture ligature. Final skin approximation was made with surgical say and a sterile bandage was applied. Appropriate postprocedural orders were then implemented. CONCLUSION: Successful implantation of a dual-chamber permanent pacemaker system, MRI compatible. Tined lead in the right atrium, active fixation lead in the right ventricle. SAT/MODL Yan Juarez D.O. / [id number] CC: MD yLric Bañuelos M.D.
--- NOTE | ~2016-10-09 | DS ---
Discharge Summary [address] [facility] [place]. [address] NAME: GABRIELA STEVENS : 48 STATUS : ADM IN PAT#: [id number] AGE: 66 ADM/REG DATE : 10/09/16 MR#: [id number] REPORT SERV DATE: 10/23/16 DICTATED BY: TITI PEDERSON DATE: 10/23/16 REPORT STATUS : Draft TRANSCRIBED BY: MODAshish DATE: 10/23/16 ADMISSION DATE: 10/09/2016 DISCHARGE DATE: This dictation is in addition to interim discharge summary dictated by Dr. Delong on 10/19/2016. I assumed care of the patient, 10/20/2016. At the time of my assumption of the care, the patient was awaiting rehab placement. The patient remained hemodynamically stable, however, did develop the urinary tract infection. The patient was placed on Levaquin with improvement of her symptoms. The patient did choose to go to [facility]. Insurance approval has been obtained. Facility does have placement for the patient. Given this new development, the patient was subsequently be discharged today. Plan has been discussed with the patient, who voices understanding and is agreeable with this plan. DISCHARGE MEDICATIONS: 1. Eliquis 5 mg p.o. q.12 hours. 2. Atenolol 25 mg p.o. at bedtime. 3. Vitamin D 5000 units p.o. daily. 4. Gabapentin 600 mg p.o. three times a day. 5. Keppra 500 mg p.o. with breakfast. 6. Keppra 1000 mg p.o. after supper. 7. Latanoprost 0.005% ophthalmic 2.5 mL one drop ophthalmic at bedtime into both eyes. 8. Lisinopril 10 mg p.o. daily. 9. Magnesium oxide 250 mg p.o. twice a day. 10.Nicotine patch topically daily. 11.Omeprazole 40 mg p.o. at bedtime. 12.Sertraline 50 mg p.o. every morning. 13.Simvastatin 40 mg p.o. at bedtime. 14.Topamax 100 mg p.o. at bedtime. DISPOSITION: The patient will be discharged to [facility]. ACTIVITY: As tolerated. DIET: Diabetic diet. Greater than 30 minutes was spent dictating note, providing counseling, medication reconciliation. DICTATED BY: MD BUFFY Bañuelos/GALEN Discharge Summary [address] [facility] [address] NAME: GABRIELA STEVENS : 48 STATUS : ADM IN PAT#: [id number] AGE: 66 ADM/REG DATE : 10/09/16 MR#: [id number] REPORT SERV DATE: 10/23/16 DICTATED BY: TITI PEDERSON DATE: 10/23/16 REPORT STATUS : Draft TRANSCRIBED BY: GALEN DATE: 10/23/16 Titi Pederson MD / [id number] CC: MD Carlos Bañuelos MD
--- NOTE | ~2016-10-09 | CN ---
Consultation Report [facility] [address] [place]. [address] NAME: GABRIELA STEVENS : 48 STATUS : ADM Mayito PAT#: [id number] AGE: 66 ADM/REG DATE : 10/09/16 MR#: [id number] REPORT SERV DATE: 10/12/16 DICTATED BY: YAN JUAREZ DATE: 10/11/16 REPORT STATUS : Draft TRANSCRIBED BY: GALEN DATE: 10/11/16 CARDIOLOGY CONSULTATION DATE OF CONSULTATION: 10/11/2016 A 66-year-old with multiple medical problems, very frequent hospitalizations, chronic dizziness, who has Home Health. They detected a low blood pressure and heart rate and sent the patient over here to [facility] for evaluation. She was placed in CDU, given IV fluids, her blood pressure improved. She was found to have Hemoccult-positive stool, although she has no history of melena or hematochezia. She continues to have orthostatic hypotension. This has been repeated a few times today after IV fluid administration. She appears awake and alert and in no distress. She claims that she has no injuries from falling, although she has frequent dizziness and falls. She claims that "someone unusually catches me." She has had several visits to my office and on one occasion, described stroke- like symptoms, was sent to the emergency room; on another occasion, described chest pain, sent to the emergency room. Neurology has been consulted. GI has been consulted. The patient's hemoglobin is 12. PAST MEDICAL HISTORY: 1. No obvious obstructive CAD by cardiac catheterization in May of this year. 2. Hypertension. 3. Diabetes mellitus. 4. Unspecified chest pain. The patient continues to have chest pain despite cardiac cath findings as above. 5. History of atrial fibrillation, currently normal sinus rhythm, on Eliquis. This has been held six-seven days in anticipation of GI workup and panendoscopy. 6. Sleep apnea, noncompliant. 7. Bradycardia. Heart rates as low as the high 40 BPM range. 8. History of CVA. 9. Other medical problems include COPD, GERD, arthritis, sleep apnea, stroke, dyslipidemia. HOME MEDICATIONS: Have been reviewed. The patient has been off Eliquis for six days and she is a fair historian overall. SURGICAL HISTORY: Recent cardiac catheterization, granular cells removed from the back, pin in the left shoulder. FAMILY HISTORY: Father at age 73. Mother of [place] at age 56. SOCIAL HISTORY: Lives with a granddaughter. She still smokes up to 10-pack cigarettes daily. ALLERGIES: NONE KNOWN. Consultation Report [address] [place]. [address] NAME: GABRIELA STEVENS : 48 STATUS : ADM Mayito PAT#: [id number] AGE: 66 ADM/REG DATE : 10/09/16 MR#: [id number] REPORT SERV DATE: 10/12/16 DICTATED BY: YAN JUAREZ. DATE: 10/11/16 REPORT STATUS : Draft TRANSCRIBED BY: GALEN DATE: 10/11/16 THE PATIENT HAS BEEN HOSPITALIZED AT [facility], [facility], AND THEN [facility] IN THE LAST YEAR. REVIEW OF SYSTEMS: As above. PHYSICAL EXAMINATION: VITAL SIGNS: See flow sheet. The patient remains markedly orthostatic with systolic blood pressure plummeting by 50 upon standing. HEENT: Unremarkable. NECK: Soft and supple. No meningismus. LUNGS: Clear. HEART: Sounds are fairly regular. ABDOMEN: Soft. EXTREMITIES: No edema. EKG shows sinus bradycardia recorded as low as 47 beats per minute. IMPRESSION: 1. Chest pain, unspecified, nonobstructive coronary artery disease demonstrated by cardiac catheterization. 2. Dizziness due to severe orthostatic hypotension. Etiology unclear. 3. Chest pain. Unspecified. 4. Diabetes. 5. Sleep apnea. Noncompliant. 6. Bradycardia. 7. History of cerebrovascular accident. PLAN: I agree with current workup. Stop IV fluids after current 1 L is infused. Discontinue Lopressor which has not been reordered anyway. Try Florinef. Hold Eliquis. I will follow with you. Thank you for allowing us to participate in her care. SAT/ROBERTHL Yan Juarez D.O. / [id number] CC: Lyric Perez M.D. Consultation Report [address] [place]. [address] NAME: GABRIELA STEVENS : 48 STATUS : ADM Mayito PAT#: [id number] AGE: 66 ADM/REG DATE : 10/09/16 MR#: [id number] REPORT SERV DATE: 10/12/16 DICTATED BY: YAN JUAREZ DATE: 10/11/16 REPORT STATUS : Draft TRANSCRIBED BY: MODL DATE: 10/11/16 Carlos Carr MD
--- NOTE | ~2016-10-09 | CN ---
Consultation Report [facility] [address] [place]. [address] NAME: GABRIELA STEVENS : 49 STATUS : ADM Mayito PAT#: [id number] AGE: 66 ADM/REG DATE : 10/09/16 MR#: [id number] REPORT SERV DATE: 10/11/16 DICTATED BY: MARIA E CHIN DATE: 10/11/16 REPORT STATUS : Draft TRANSCRIBED BY: GALEN DATE: 10/11/16 NEUROLOGICAL CONSULTATION - EVALUATION DATE OF CONSULTATION: 10/10/2016 LOCATION OF THE PATIENT: CDU, room 3. HISTORY OF PRESENT ILLNESS: This is a 66-year-old, female with known history of previous CVA, history of hypertension, and paroxysmal atrial fibrillation, who was admitted through the emergency room with complaints of weakness, numbness, dizziness, and headache. The patient stated that she has been not feeling well in the past two weeks, has had difficulty ambulating because of her dizziness. The patient noticed that her dizziness appears to worsen when she stands up. The patient was hospitalized for three days from 09/14/2016 to 09/18/2016. At that time, she was told she may have had a stroke in the past. 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 The patient was given a bolus of IV fluids on admission to the emergency room to correct the blood pressure systolic of 73. At that time, the patient had a pulse of 54, was saying that she was feeling funny, sleepy, dizzy, and weak all over. After receiving normal IV fluids, the patient's blood pressure went up to 115/43. The patient denied having chest pain. Denied having weakness or numbness involving her face or extremities. Denied difficulty with her speech. Denied loss of consciousness. The patient has been on Keppra and Topamax for treatment of her migraine headaches and mentioned several times in the chart that the patient has history of seizures, however, she denies having history of recent, remote, or present history of seizures. The patient sees Dr. Alicea, neurologist, who had started the patient initially on Topamax and Keppra for control of her chronic migraines. The patient is currently seeing a GI specialist for possible chronic GI bleed and significant weight loss. PAST MEDICAL HISTORY: As mentioned above. Positive for previous history of a stroke, age undetermined. On admission, a CT scan showed area of old ischemia in the left cerebellum, small microvascular changes were noted in periventricular regions bilaterally. The patient has history of paroxysmal atrial fibrillation, history of hypertension, coronary artery disease, chronic migraines, insulin-dependent diabetes mellitus type 2, history of neuropathy, hyperlipidemia, history of obstructive sleep apnea, not using her CPAP. PAST SURGICAL HISTORY: Includes cervical spine surgery x2, lumbar spine fusion, shoulder surgery, wrist surgery, history of left ankle surgery for fracture. SOCIAL HISTORY: The patient stopped smoking in 08/2016. Used to drink, stop drinking occasionally a couple of years ago. 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 The patient lives with her niece and has no children. FAMILY HISTORY: Significant for history of stroke, history of diabetes, and hypertension. History of coronary artery disease in two of her sisters. The patient's brother and father Consultation Report [address] [address] NAME: GABRIELA STEVENS : 48 STATUS : ADM Mayito PAT#: [id number] AGE: 66 ADM/REG DATE : 10/09/16 MR#: [id number] REPORT SERV DATE: 10/11/16 DICTATED BY: MARIA E CHIN DATE: 10/11/16 REPORT STATUS : Draft TRANSCRIBED BY: GALEN DATE: 10/11/16 had a CVA. ALLERGIES: SULFA, ANTIBIOTICS. MEDICATIONS: Amlodipine 2.5 mg b.i.d., gabapentin 600 mg p.o. t.i.d., insulin according to sliding scale, Keppra 1 g at bedtime, Keppra 500 mg q.a.m., topiramate 100 mg p.o. at bedtime, sertraline 50 mg p.o. daily, simvastatin 40 mg p.o. daily. The patient is on nicotine transdermal patch, metoprolol 25 mg q.8 h., melatonin 6 mg at bedtime, magnesium oxide 200 mg b.i.d., lisinopril 10 mg b.i.d. REVIEW OF SYSTEMS: The patient had a significant weight loss in the past six months of approximately 30 pounds. She is not trying to lose weight. As mentioned above, the patient has history of chronic migraines, has been on Topamax and Keppra for migraine prevention. The rest of 14-point review of systems as mentioned in history of present illness. The rest were negative. PHYSICAL EXAMINATION: VITAL SIGNS: Blood pressure 139/77, pulse was 49, respirations 18, and temperature is 97.9. HEAD AND NECK: Head to be normocephalic. No evidence of trauma. Auscultation of the neck showed no evidence of bruits. Neck was supple. There was no Kernig or Brudzinski. Cervical range of motion was not impaired. There was no JVD, no thyromegaly, and no lymphadenopathy. EYES: Sclerae were not icteric. Conjunctivae were pink. ENT: Tongue was midline. No atrophy or fibrillations were noted. The patient's airway was small, Mallampati class 3. CHEST: Symmetrical. LUNGS: Clear. HEART: Auscultation of the heart, sinus bradycardia. Heart rate of approximately 55 beats per minute. Appears to be regular. S1 and S2. I did not appreciate any murmurs or rubs. ABDOMEN: Soft, nontender. No organomegaly. Bowel sounds are present. EXTREMITIES: No clubbing or cyanosis. There was no peripheral edema. Peripheral pulses were intact and within normal range. SKIN: Clear. No petechiae or ecchymoses. No other abnormalities noted. NEUROLOGICAL EXAMINATION: Mental Status Exam: The patient was alert and oriented to self, time, and place. Her speech was fluent. There was no evidence of aphasia or dysarthria. Thought content and mood were appropriate. CRANIAL NERVE EXAMINATION: II-XII: Visual lyons on confrontation were intact. Funduscopic exam showed no evidence of papilledema or hemorrhages or exudates. Venous pulsation is normal. The patient is status post cataract surgery. Extraocular movements were full. There was no nystagmus. No limitation of upward or downward gaze was noted. There was no dysconjugate gaze. No facial asymmetry was detected. Facial sensation, muscles of mastication, muscles of facial expression showed no evidence of asymmetry or weakness. Lower cranial nerves were intact. Tongue was midline. No atrophy or Consultation Report [address] [place]. [address] NAME: GABRIELA STEVENS: 48 STATUS : ADM Mayito PAT#: [id number] AGE: 66 ADM/REG DATE : 10/09/16 MR#: [id number] REPORT SERV DATE: 10/11/16 DICTATED BY: MARIA E CHIN DATE: 10/11/16 REPORT STATUS : Draft TRANSCRIBED BY: GALEN DATE: 10/11/16 fibrillations were noted. Palate elevated symmetrically. Gag reflex was normal. Sternocleidomastoid and trapezius muscles were normal. MOTOR: Muscle bulk and tone was normal. Strength was 5/5 throughout. Deep tendon reflexes were absent in lower extremities, trace in biceps and triceps, absent in brachioradialis on the right. SENSORY: Decreased sensation to pinprick light touch and vibration was seen distally in both lower extremities. There is peripheral neuropathy. CEREBELLAR: [id number] showed very minimal endpoint tremor and mild ataxia on the left. The same with a iyxi-pz-[id number] and mild clumsiness on the left. GAIT: The patient was extremely orthostatic and standing was not tested. LABORATORY STUDIES: Sodium 139, potassium 4.5, BUN 20, creatinine 1.22. Glomerular filtration rate 53. Glucose 203. Calcium 9.3. Magnesium 1.8. Phosphorus 3.6. WBC count 4.5, hemoglobin 11.3, hematocrit 36.0, platelet count 96,000. BNP 340.6. CPK-MB fraction 0.7. Troponin less than 0.02. IMPRESSION: 1. Doubt presence of new cerebrovascular accident, however, in view of the patient's markedly increased risk of recurrent cerebrovascular accident, would recommend to obtain MRI of the brain. 2. Probable orthostatic hypotension, contributed to the patient's dizziness and other symptoms as described in history of present illness. The patient does have history of cerebellar infarct, which potentially cause dizziness and some of the symptoms the patient described. On neurological examination, subtle ataxia was noted on the left. 3. History of obstructive sleep apnea. The patient is noncompliant with her CPAP. The importance of using CPAP and prevention of stroke was discussed with the patient and the patient should have a followup with the sleep physician to repeat the CPAP titration study with different device or an auto-titrating CPAP. 4. History of atrial fibrillation. The patient has been on Eliquis, not sure whether she is compliant at the present time. The patient was told that she may have gastrointestinal bleeding. It appears the patient may have stopped her Eliquis recently. 5. Significant weight loss. Presence of underlying cancer should be suspected and monitored. 6. History of chronic migraines. The patient is taking Topamax and Keppra and describes side effects of Topamax on weight loss perhaps that needs to be monitored and outpatient neurologist may consider changing her migraine preventive medication if no other source of weight loss is found. 7. History of tobacco abuse. The patient stopped smoking in 08/2016, is currently on a nicotine patch. 8. We will review the patient's MRI and other studies from neurological standpoint. Consultation Report [address] [place]. [address] NAME: GABRIELA STEVENS : 48 STATUS : ADM Mayito PAT#: [id number] AGE: 66 ADM/REG DATE : 10/09/16 MR#: [id number] REPORT SERV DATE: 10/11/16 DICTATED BY: MARIA E CHIN DATE: 10/11/16 REPORT STATUS : Draft TRANSCRIBED BY: GALEN DATE: 10/11/16 Thank you for allowing us to participate in this patient's care. ANGELY/GALEN Maria E Chin MD / [id number] CC: Maia Blackwood MD
--- NOTE | ~2016-10-09 | IDS ---
Interim Discharge Summary [facility] [address] [place]. [address] NAME: GABRIELA STEVENS : 48 STATUS : ADM IN [facility]#: [id number] AGE: 66 ADM/REG DATE : 10/09/16 MR#: [id number] REPORT SERV DATE: 10/19/16 DICTATED BY: CODY SMITH DATE: 10/19/16 REPORT STATUS : Draft TRANSCRIBED BY: MODAshish DATE: 10/19/16 ADMISSION DATE: 10/09/2016 DISCHARGE DATE: CURRENT HOSPITAL DIAGNOSES: 1. Atrial fibrillation, chronic, on chronic anticoagulation. 2. Bradycardic, status post pacemaker placement. 3. History of coronary artery disease. 4. History of hypertension. 5. History of prior CVA. 6. History of diabetes mellitus. 7. Orthostasis, [facility] 8. Dysphagia with negative swallowing study. Outpatient evaluation with Dr. Bella. CONSULTATIONS: Neurology, Dr. Chin and Cardiology, Dr. Juarez. PROCEDURES: 1. Pacemaker placement. 2. CT abdomen and pelvis done on the 10/09/2016 showing no evidence of acute abnormality within the abdomen or pelvis, gallbladder with calculi, but no evidence of pericholecystic inflammation. Cardiomegaly. Cysts within both kidneys, unchanged since August 2016, diverticulosis, lumbosacral surgical changes. 3. MRI of the brain done on the 10/10/2016 showing no evidence of acute infarction or bleed. Evidence of an old watershed infarction. Intracranial MRA demonstrates no significant vessel cut off, luminal stenosis, or aneurysm. Features of atherosclerosis in the carotid siphons bilaterally. MRA of the neck showing brachiocephalic, demonstrates no significant luminal stenosis of the carotid or vertebrals. Stenosis of the proximal takeoff of the right subclavian artery. 4. Barium swallow done on the 10/15/2016 showing no aspiration, difficult swallowing of the barium tablet. CURRENT PHYSICAL FINDINGS AND HISTORY OF PRESENT ILLNESS: Please see initial dictated H and P by Dr. Baker. In brief, the patient had several admissions prior for both cardiovascular and cerebrovascular incidents presented with complaints of feeling weak and dizzy. HOSPITAL COURSE: The patient was initially evaluated and admitted. GI was initially consulted as she had been doing an outpatient workup for nausea, weight loss, and dysphagia. Home medications were reviewed and ordered appropriately. Sliding scale insulin was initiated. She was placed on electrolyte protocol. Her Eliquis was held at that time. The following day, she was moved to a telemetry floor. Neurology was consulted. MRI was ordered, Cardiology consult for syncope and bradycardia, metoprolol was also held at that time, and Neurology requested the MRI, MRA. She did receive some magnesium replacement. The following day, she received some saline boluses and her Norvasc was discontinued and changed to lisinopril. Cardiology saw her in consultation, discontinued the metoprolol. Had written order to start Florinef at that time. The following day, her GI consult which had been placed on admission was canceled and she continued with her cardiac evaluation. It Interim Discharge Summary [address] [place]. [address] NAME: GABRIELA STEVENS : 48 STATUS : ADM IN PAT#: [id number] AGE: 66 ADM/REG DATE : 10/09/16 MR#: [id number] REPORT SERV DATE: 10/19/16 DICTATED BY: CODY SMITH DATE: 10/19/16 REPORT STATUS : Draft TRANSCRIBED BY: GALEN DATE: 10/19/16 was elected to proceed with a pacemaker at that time on the 10/13/2016. I took over her care at that time. Serial labs were followed. Post pacemaker placement, she was started back on her beta patel and lisinopril. The patient at that time requested that she get a swallowing study and that was scheduled the day of her admission, but her cardiac issues took precedence that was ordered. She was placed on a diabetic diet and her sliding scale was increased to level 2. Orthostatics continued to show some orthostasis, she was not on the Florinef, so this was initiated. The patient then the following day requested placement for rehab, as with her orthostasis and previous neurological events, the family felt unsafe caring for her at home. PT was requested, but initial consult was not answered and had to be repeated. PT assessment recommended placement and [facility] is currently pending. OTHER ABNORMALITIES: She has had a stable low anemia. She has had a stable low platelet count, but for her platelet count, her Eliquis has been re-initiated. She is going to follow up with Dr. Bella, outpatient, for her GI issues. She has had escalated treatment for her hyperglycemia, probably aggravated by the Florinef. DISPOSITION: Transitioned to [facility] when approved and bed available. TLF/MODL Cody Smith M.D. / [id number] CC: Maia Cali MD
[~2016-10-09 12:36] MED LIST: D 5000 PO; ELIQUIS 5 MG TAB5 MG PO; FERROUS SULF325 M1 PO; KDUR10 PO; KEPPRA500 PO; L20 PO; LISINOPRIL40 MG PO; LOP50 PO; NEUR600 PO; NORCO1 TAB PO; NORV5 PO; PRILOSEC40 MG PO; TOPAMAX50 MG PO; XALAT OPH; ZANAFLEX 4 MG TA4 MG PO; ZOCOR40 PO; ZOFRAN ODT4 MG PO; ZOL50 PO
[2016-10-09 13:23] LABS: BASOPHILS 0.9 %; BASOPHILS ABSOLUTE 0.04 10/3/uL (0.0-0.16); EOSINOPHILS 2.6 %; EOSINOPHILS ABSOLUTE 0.12 10/3/uL (0.0-0.53); HEMATOCRIT 35.9 % (36.0-48.0); HEMOGLOBIN 11.1 g/dL (12.0-16.0); IMMATURE GRANULOCYTES 0.2 %; IMMATURE GRANULOCYTES ABSOLUTE 0.01 10/3/uL (0.0-0.11); LYMPHOCYTES 37.9 %; LYMPHOCYTES ABSOLUTE 1.72 10/3/uL (0.67-4.30); MANUAL DIFF NO %; MEAN CORPUS HGB CONC 30.9 g/dL (32.0-36.0); MEAN CORPUSCULAR HEMOGLOB 25.4 pg (26.0-34.0); MEAN CORPUSCULAR VOLUME 82.2 fL (80-100); MONOCYTES 11.9 %; MONOCYTES ABSOLUTE 0.54 10/3/uL (0.21-1.20); NEUTROPHILS 46.5 %; NEUTROPHILS ABSOLUTE 2.11 10/3/uL (2.02-8.40); PLATELET COUNT 93 10/3/uL (150-400); RBC DISTRIBUTION WIDTH 20.1 % (12.0-16.0); RED CELL COUNT 4.37 10/6/uL (4.0-5.6); WHITE BLOOD CELLS 4.5 10/3/uL (4.5-10.5)
[2016-10-09 13:28] LABS: INTERNATIONAL NORMAL RATI 1.4 UNITS (-); PROTIME (NOT ORD) 16.6 SEC (12.0-14.5)
[2016-10-09 13:29] LABS: PARTIAL THROMBO TIME 32.3 SEC (22.5-37.2)
[2016-10-09 13:38] LABS: CALCIUM, SERUM 9.3 MG/DL (8.5-10.4); CHEST PAIN PROFILE TAT 0 Hrs 21 Mins; CHLORIDE, SERUM 107 MMOL/L (96-112); CO2 (CARBON DIOXIDE) 27 MMOL/L (24-34); CREATININE 1.22 MG/DL (0.55-1.02); GFR AFRICAN AMERICAN 53 ML/MIN (>=60); GFR NON AFRICAN AMERICAN 46 ML/MIN (>=60); POTASSIUM, SERUM 4.5 MMOL/L (3.5-5.3); SODIUM, SERUM 139 MMOL/L (135-148); TROPONIN I <0.02 NG/ML (<0.05)
[2016-10-09 13:39] LABS: BUN (BLOOD UREA NITROGEN) 20 MG/DL (6-23); GLUCOSE, SERUM 201 MG/DL (60-99)
[2016-10-09 13:57] LABS: PLATELET ESTIMATE SLT DEC (ADEQUATE); RBC MORPHOLOGY NORM (NORMAL)
[2016-10-09 16:51] LABS: ASCORBIC ACID (UR NOT ORDER) NEG (NEG); BILIRUBIN, URINE NEGATIVE (NEG); ER URINALYSIS TAT 0 Hrs 08 Mins; KETONE, URINE NEGATIVE (NEG); LEUKOCYTE ESTERASE(NOT OR NEG (NEG); NITRITE (URINE) NEG (NEG); WBC (NOT ORDERED) (RFLEX) < 1 (0-5)
[2016-10-09] MEDS ORDERED: MAG OXIDE250 MG PO (17:39)
[2016-10-09] MEDS ORDERED: HABIT21 TOP (17:45)
[2016-10-10] LABS: ALBUMIN 3.5 G/DL (3.5-5.0); ALKALINE PHOSPHATASE 165 U/L (45-117); CK-MB < 0.5 NG/ML; CPK 51 U/L (0-200); DIRECT BILIRUBIN 0.2 MG/DL (0.0-0.4); FERRITIN 117 NG/ML (8-252); INDIRECT BILIRUBIN(NOT ORDER) 0.2 MG/DL (0.1-0.9); IRON BINDING CAPACITY 324 MCG/DL (225-410); IRON, SERUM 101 MCG/DL (35-150); PHOSPHORUS, SERUM 3.6 MG/DL (2.5-4.5); SGOT(AST) 186 U/L (5-40); SGPT(ALT) 167 U/L (5-65); TOTAL BILIRUBIN 0.4 MG/DL (0-1.2); TOTAL PROTEIN 7.1 G/DL (6.0-8.5)
[2016-10-10 05:40] LABS: ALBUMIN 3.1 G/DL (3.5-5.0); CPK 47 U/L (0-200); DIRECT BILIRUBIN 0.2 MG/DL (0.0-0.4); INDIRECT BILIRUBIN(NOT ORDER) 0.3 MG/DL (0.1-0.9); SGOT(AST) 193 U/L (5-40); SGPT(ALT) 162 U/L (5-65); TOTAL BILIRUBIN 0.5 MG/DL (0-1.2); TOTAL PROTEIN 6.5 G/DL (6.0-8.5); TROPONIN I <0.02 NG/ML (<0.05)
[2016-10-10 05:41] LABS: ALKALINE PHOSPHATASE 119 U/L (45-117); CK-MB 0.7 NG/ML
[2016-10-10 06:03] LABS: BASOPHILS 0.4 %; BASOPHILS ABSOLUTE 0.02 10/3/uL (0.0-0.16); EOSINOPHILS 4.2 %; EOSINOPHILS ABSOLUTE 0.19 10/3/uL (0.0-0.53); HEMOGLOBIN 11.3 g/dL (12.0-16.0); IMMATURE GRANULOCYTES 0.2 %; IMMATURE GRANULOCYTES ABSOLUTE 0.01 10/3/uL (0.0-0.11); LYMPHOCYTES 33.9 %; LYMPHOCYTES ABSOLUTE 1.52 10/3/uL (0.67-4.30); MEAN CORPUS HGB CONC 31.4 g/dL (32.0-36.0); MEAN CORPUSCULAR HEMOGLOB 25.6 pg (26.0-34.0); MEAN CORPUSCULAR VOLUME 81.6 fL (80-100); MONOCYTES 8.7 %; MONOCYTES ABSOLUTE 0.39 10/3/uL (0.21-1.20); NEUTROPHILS 52.6 %; NEUTROPHILS ABSOLUTE 2.35 10/3/uL (2.02-8.40); PLATELET COUNT 96 10/3/uL (150-400); RBC DISTRIBUTION WIDTH 19.8 % (12.0-16.0); RED CELL COUNT 4.41 10/6/uL (4.0-5.6); WHITE BLOOD CELLS 4.5 10/3/uL (4.5-10.5)
[2016-10-10 06:04] LABS: MANUAL DIFF NO %
[2016-10-10 07:34] LABS: ANISOCYTOSIS 1+ (5-10/OIF) (0-5/OIF); PLATELET ESTIMATE DEC (ADEQUATE)
[2016-10-10 07:35] LABS: HYPOCHROMIA 1+ (3-10/OIF) (0-2/OIF)
[2016-10-11 03:50] LABS: BASOPHILS 0.4 %; BASOPHILS ABSOLUTE 0.02 10/3/uL (0.0-0.16); EOSINOPHILS 4.1 %; HEMATOCRIT 39.1 % (36.0-48.0); HEMOGLOBIN 12.2 g/dL (12.0-16.0); IMMATURE GRANULOCYTES 0.2 %; IMMATURE GRANULOCYTES ABSOLUTE 0.01 10/3/uL (0.0-0.11); LYMPHOCYTES 36.8 %; MEAN CORPUS HGB CONC 31.2 g/dL (32.0-36.0); MEAN CORPUSCULAR HEMOGLOB 25.4 pg (26.0-34.0); MEAN CORPUSCULAR VOLUME 81.3 fL (80-100); MONOCYTES 6.5 %; MONOCYTES ABSOLUTE 0.32 10/3/uL (0.21-1.20); NEUTROPHILS ABSOLUTE 2.54 10/3/uL (2.02-8.40); PLATELET COUNT 97 10/3/uL (150-400); RBC DISTRIBUTION WIDTH 19.7 % (12.0-16.0); RED CELL COUNT 4.81 10/6/uL (4.0-5.6); WHITE BLOOD CELLS 4.9 10/3/uL (4.5-10.5)
[2016-10-11 04:06] LABS: BUN (BLOOD UREA NITROGEN) 17 MG/DL (6-23); CALCIUM, SERUM 9.2 MG/DL (8.5-10.4); CHLORIDE, SERUM 107 MMOL/L (96-112); CO2 (CARBON DIOXIDE) 24 MMOL/L (24-34); GFR AFRICAN AMERICAN 68 ML/MIN (>=60); GFR NON AFRICAN AMERICAN 58 ML/MIN (>=60); GLUCOSE, SERUM 225 MG/DL (60-99); POTASSIUM, SERUM 4.2 MMOL/L (3.5-5.3); SODIUM, SERUM 137 MMOL/L (135-148); TROPONIN I <0.02 NG/ML (<0.05)
[2016-10-11 04:12] LABS: MANUAL DIFF NO %
[2016-10-12 06:31] LABS: BUN (BLOOD UREA NITROGEN) 16 MG/DL (6-23); CALCIUM, SERUM 9.1 MG/DL (8.5-10.4); CHLORIDE, SERUM 109 MMOL/L (96-112); CO2 (CARBON DIOXIDE) 22 MMOL/L (24-34); GFR AFRICAN AMERICAN 88 ML/MIN (>=60); GFR NON AFRICAN AMERICAN 76 ML/MIN (>=60); GLUCOSE, SERUM 238 MG/DL (60-99); POTASSIUM, SERUM 3.8 MMOL/L (3.5-5.3); SODIUM, SERUM 138 MMOL/L (135-148)
[2016-10-13 06:29] LABS: BASOPHILS 0.4 %; BASOPHILS ABSOLUTE 0.02 10/3/uL (0.0-0.16); EOSINOPHILS 3.2 %; EOSINOPHILS ABSOLUTE 0.16 10/3/uL (0.0-0.53); HEMATOCRIT 38.4 % (36.0-48.0); HEMOGLOBIN 12.3 g/dL (12.0-16.0); IMMATURE GRANULOCYTES 0.2 %; IMMATURE GRANULOCYTES ABSOLUTE 0.01 10/3/uL (0.0-0.11); LYMPHOCYTES 35.2 %; LYMPHOCYTES ABSOLUTE 1.74 10/3/uL (0.67-4.30); MEAN CORPUSCULAR HEMOGLOB 25.7 pg (26.0-34.0); MEAN CORPUSCULAR VOLUME 80.3 fL (80-100); MONOCYTES 9.9 %; MONOCYTES ABSOLUTE 0.49 10/3/uL (0.21-1.20); NEUTROPHILS 51.1 %; NEUTROPHILS ABSOLUTE 2.53 10/3/uL (2.02-8.40); PLATELET COUNT 106 10/3/uL (150-400); RBC DISTRIBUTION WIDTH 19.7 % (12.0-16.0); RED CELL COUNT 4.78 10/6/uL (4.0-5.6)
[2016-10-13 06:31] LABS: MANUAL DIFF NO %
[2016-10-13 06:40] LABS: BUN (BLOOD UREA NITROGEN) 17 MG/DL (6-23); CALCIUM, SERUM 9.4 MG/DL (8.5-10.4); CHLORIDE, SERUM 109 MMOL/L (96-112); CO2 (CARBON DIOXIDE) 24 MMOL/L (24-34); CREATININE 0.85 MG/DL (0.55-1.02); GFR AFRICAN AMERICAN 82 ML/MIN (>=60); GFR NON AFRICAN AMERICAN 71 ML/MIN (>=60); POTASSIUM, SERUM 3.7 MMOL/L (3.5-5.3); SODIUM, SERUM 140 MMOL/L (135-148)
[2016-10-13 06:41] LABS: GLUCOSE, SERUM 183 MG/DL (60-99)
[2016-10-13 06:53] LABS: PLATELET ESTIMATE DEC (ADEQUATE)
[2016-10-14 04:30] LABS: BASOPHILS 0.4 %; BASOPHILS ABSOLUTE 0.02 10/3/uL (0.0-0.16); EOSINOPHILS 2.4 %; EOSINOPHILS ABSOLUTE 0.13 10/3/uL (0.0-0.53); HEMATOCRIT 38.2 % (36.0-48.0); HEMOGLOBIN 12.4 g/dL (12.0-16.0); IMMATURE GRANULOCYTES 0.2 %; IMMATURE GRANULOCYTES ABSOLUTE 0.01 10/3/uL (0.0-0.11); LYMPHOCYTES 26.2 %; MEAN CORPUS HGB CONC 32.5 g/dL (32.0-36.0); MEAN CORPUSCULAR VOLUME 80.1 fL (80-100); MONOCYTES 9.5 %; MONOCYTES ABSOLUTE 0.51 10/3/uL (0.21-1.20); NEUTROPHILS 61.3 %; NEUTROPHILS ABSOLUTE 3.28 10/3/uL (2.02-8.40); PLATELET COUNT 88 10/3/uL (150-400); RBC DISTRIBUTION WIDTH 19.5 % (12.0-16.0); RED CELL COUNT 4.77 10/6/uL (4.0-5.6); WHITE BLOOD CELLS 5.4 10/3/uL (4.5-10.5)
[2016-10-14 04:31] LABS: MANUAL DIFF NO %
[2016-10-14 04:52] LABS: A/G RATIO 0.8 (0.7-1.9); ALBUMIN 2.9 G/DL (3.5-5.0); ALKALINE PHOSPHATASE 122 U/L (45-117); BUN (BLOOD UREA NITROGEN) 14 MG/DL (6-23); CHLORIDE, SERUM 110 MMOL/L (96-112); CO2 (CARBON DIOXIDE) 21 MMOL/L (24-34); CREATININE 0.73 MG/DL (0.55-1.02); GFR AFRICAN AMERICAN 99 ML/MIN (>=60); GFR NON AFRICAN AMERICAN 85 ML/MIN (>=60); GLOBULIN 3.8 G/DL (2.5-4.1); GLUCOSE, SERUM 190 MG/DL (60-99); POTASSIUM, SERUM 3.6 MMOL/L (3.5-5.3); SGOT(AST) 237 U/L (5-40); SGPT(ALT) 190 U/L (5-65); SODIUM, SERUM 139 MMOL/L (135-148); TOTAL BILIRUBIN 0.4 MG/DL (0-1.2); TOTAL PROTEIN 6.7 G/DL (6.0-8.5)
[2016-10-14 04:57] LABS: CALCIUM, SERUM 9.4 MG/DL (8.5-10.4)
[2016-10-14 05:33] LABS: ANISOCYTOSIS 1+ (5-10/OIF) (0-5/OIF); PLATELET ESTIMATE DEC (ADEQUATE)
[2016-10-15 05:02] LABS: BASOPHILS 0.2 %; BASOPHILS ABSOLUTE 0.01 10/3/uL (0.0-0.16); EOSINOPHILS 2.9 %; EOSINOPHILS ABSOLUTE 0.17 10/3/uL (0.0-0.53); HEMOGLOBIN 12.3 g/dL (12.0-16.0); IMMATURE GRANULOCYTES 0.3 %; IMMATURE GRANULOCYTES ABSOLUTE 0.02 10/3/uL (0.0-0.11); LYMPHOCYTES 37.4 %; LYMPHOCYTES ABSOLUTE 2.16 10/3/uL (0.67-4.30); MEAN CORPUS HGB CONC 32.4 g/dL (32.0-36.0); MEAN CORPUSCULAR HEMOGLOB 26.1 pg (26.0-34.0); MEAN CORPUSCULAR VOLUME 80.5 fL (80-100); MONOCYTES 9.5 %; MONOCYTES ABSOLUTE 0.55 10/3/uL (0.21-1.20); NEUTROPHILS 49.7 %; NEUTROPHILS ABSOLUTE 2.86 10/3/uL (2.02-8.40); PLATELET COUNT 87 10/3/uL (150-400); RBC DISTRIBUTION WIDTH 19.6 % (12.0-16.0); RED CELL COUNT 4.72 10/6/uL (4.0-5.6); WHITE BLOOD CELLS 5.8 10/3/uL (4.5-10.5)
[2016-10-15 05:10] LABS: MANUAL DIFF NO %
[2016-10-15 06:15] LABS: PLATELET ESTIMATE DEC (ADEQUATE)
[2016-10-15 06:16] LABS: RBC MORPHOLOGY NORM (NORMAL)
[2016-10-18 21:27] LABS: BASOPHILS 0.7 %; BASOPHILS ABSOLUTE 0.04 10/3/uL (0.0-0.16); EOSINOPHILS 3.5 %; EOSINOPHILS ABSOLUTE 0.19 10/3/uL (0.0-0.53); HEMATOCRIT 36.7 % (36.0-48.0); HEMOGLOBIN 11.5 g/dL (12.0-16.0); IMMATURE GRANULOCYTES 0.2 %; IMMATURE GRANULOCYTES ABSOLUTE 0.01 10/3/uL (0.0-0.11); LYMPHOCYTES 35.8 %; LYMPHOCYTES ABSOLUTE 1.95 10/3/uL (0.67-4.30); MEAN CORPUS HGB CONC 31.3 g/dL (32.0-36.0); MEAN CORPUSCULAR HEMOGLOB 25.6 pg (26.0-34.0); MEAN CORPUSCULAR VOLUME 81.6 fL (80-100); MONOCYTES 9.5 %; MONOCYTES ABSOLUTE 0.52 10/3/uL (0.21-1.20); NEUTROPHILS 50.3 %; NEUTROPHILS ABSOLUTE 2.74 10/3/uL (2.02-8.40); PLATELET COUNT 79 10/3/uL (150-400); RBC DISTRIBUTION WIDTH 19.3 % (12.0-16.0); WHITE BLOOD CELLS 5.5 10/3/uL (4.5-10.5)
[2016-10-18 21:28] LABS: MANUAL DIFF NO %
[2016-10-18 21:34] LABS: CHLORIDE, SERUM 106 MMOL/L (96-112); GFR AFRICAN AMERICAN 68 ML/MIN (>=60); GFR NON AFRICAN AMERICAN 58 ML/MIN (>=60); GLUCOSE, SERUM 195 MG/DL (60-99); POTASSIUM, SERUM 3.7 MMOL/L (3.5-5.3); SODIUM, SERUM 137 MMOL/L (135-148)
[2016-10-18 21:37] LABS: BUN (BLOOD UREA NITROGEN) 32 MG/DL (6-23); CO2 (CARBON DIOXIDE) 26 MMOL/L (24-34)
[2016-10-18 21:40] LABS: ANISOCYTOSIS 1+ (5-10/OIF) (0-5/OIF); PLATELET ESTIMATE DEC (ADEQUATE); POIKILOCYTOSIS 1+ (5-10/OIF) (0-5/OIF)
[2016-10-21 05:52] LABS: BASOPHILS 0.7 %; BASOPHILS ABSOLUTE 0.04 10/3/uL (0.0-0.16); EOSINOPHILS 3.9 %; EOSINOPHILS ABSOLUTE 0.23 10/3/uL (0.0-0.53); HEMATOCRIT 36.7 % (36.0-48.0); HEMOGLOBIN 11.8 g/dL (12.0-16.0); IMMATURE GRANULOCYTES 0.3 %; IMMATURE GRANULOCYTES ABSOLUTE 0.02 10/3/uL (0.0-0.11); LYMPHOCYTES 31.6 %; LYMPHOCYTES ABSOLUTE 1.85 10/3/uL (0.67-4.30); MANUAL DIFF NO %; MEAN CORPUS HGB CONC 32.2 g/dL (32.0-36.0); MEAN CORPUSCULAR VOLUME 80.8 fL (80-100); MONOCYTES 7.7 %; MONOCYTES ABSOLUTE 0.45 10/3/uL (0.21-1.20); NEUTROPHILS 55.8 %; NEUTROPHILS ABSOLUTE 3.26 10/3/uL (2.02-8.40); PLATELET COUNT 103 10/3/uL (150-400); RBC DISTRIBUTION WIDTH 18.9 % (12.0-16.0); RED CELL COUNT 4.54 10/6/uL (4.0-5.6); WHITE BLOOD CELLS 5.9 10/3/uL (4.5-10.5)
[2016-10-21 06:05] LABS: A/G RATIO 0.8 (0.7-1.9); ALKALINE PHOSPHATASE 132 U/L (45-117); CALCIUM, SERUM 9.2 MG/DL (8.5-10.4); CHLORIDE, SERUM 107 MMOL/L (96-112); CO2 (CARBON DIOXIDE) 25 MMOL/L (24-34); CREATININE 0.82 MG/DL (0.55-1.02); GFR AFRICAN AMERICAN 86 ML/MIN (>=60); GFR NON AFRICAN AMERICAN 74 ML/MIN (>=60); GLOBULIN 3.6 G/DL (2.5-4.1); GLUCOSE, SERUM 171 MG/DL (60-99); POTASSIUM, SERUM 3.5 MMOL/L (3.5-5.3); SGOT(AST) 315 U/L (5-40); SGPT(ALT) 260 U/L (5-65); SODIUM, SERUM 140 MMOL/L (135-148); TOTAL BILIRUBIN 0.6 MG/DL (0-1.2); TOTAL PROTEIN 6.6 G/DL (6.0-8.5)
[2016-10-21 06:09] LABS: BUN (BLOOD UREA NITROGEN) 22 MG/DL (6-23)
[2016-10-21 06:22] LABS: ANISOCYTOSIS 1+ (5-10/OIF) (0-5/OIF); PLATELET ESTIMATE SLT DEC (ADEQUATE)
[2016-10-22 04:39] LABS: BASOPHILS 0.3 %; BASOPHILS ABSOLUTE 0.02 10/3/uL (0.0-0.16); EOSINOPHILS 3.7 %; EOSINOPHILS ABSOLUTE 0.22 10/3/uL (0.0-0.53); HEMATOCRIT 36.4 % (36.0-48.0); HEMOGLOBIN 11.6 g/dL (12.0-16.0); IMMATURE GRANULOCYTES 0.2 %; IMMATURE GRANULOCYTES ABSOLUTE 0.01 10/3/uL (0.0-0.11); LYMPHOCYTES 37.8 %; LYMPHOCYTES ABSOLUTE 2.24 10/3/uL (0.67-4.30); MEAN CORPUS HGB CONC 31.9 g/dL (32.0-36.0); MEAN CORPUSCULAR HEMOGLOB 25.7 pg (26.0-34.0); MEAN CORPUSCULAR VOLUME 80.5 fL (80-100); MONOCYTES 9.3 %; MONOCYTES ABSOLUTE 0.55 10/3/uL (0.21-1.20); NEUTROPHILS 48.7 %; NEUTROPHILS ABSOLUTE 2.88 10/3/uL (2.02-8.40); PLATELET COUNT 108 10/3/uL (150-400); RBC DISTRIBUTION WIDTH 19.1 % (12.0-16.0); RED CELL COUNT 4.52 10/6/uL (4.0-5.6); WHITE BLOOD CELLS 5.9 10/3/uL (4.5-10.5)
[2016-10-22 04:40] LABS: MANUAL DIFF NO %
[2016-10-22 04:57] LABS: A/G RATIO 0.8 (0.7-1.9); ALBUMIN 2.9 G/DL (3.5-5.0); ALKALINE PHOSPHATASE 134 U/L (45-117); BUN (BLOOD UREA NITROGEN) 21 MG/DL (6-23); CALCIUM, SERUM 9.2 MG/DL (8.5-10.4); CHLORIDE, SERUM 108 MMOL/L (96-112); CO2 (CARBON DIOXIDE) 24 MMOL/L (24-34); CREATININE 0.79 MG/DL (0.55-1.02); GFR AFRICAN AMERICAN 90 ML/MIN (>=60); GFR NON AFRICAN AMERICAN 77 ML/MIN (>=60); GLOBULIN 3.6 G/DL (2.5-4.1); GLUCOSE, SERUM 168 MG/DL (60-99); POTASSIUM, SERUM 3.7 MMOL/L (3.5-5.3); SGPT(ALT) 226 U/L (5-65); SODIUM, SERUM 141 MMOL/L (135-148); TOTAL BILIRUBIN 0.7 MG/DL (0-1.2); TOTAL PROTEIN 6.5 G/DL (6.0-8.5)
[2016-10-22 05:02] LABS: SGOT(AST) 257 U/L (5-40)
[2016-10-22 05:03] LABS: ANISOCYTOSIS 1+ (5-10/OIF) (0-5/OIF); GIANT PLATELET RARE; HYPOCHROMIA 1+ (3-10/OIF) (0-2/OIF); MICROCYTES 1+ (5-10/OIF) (0-5/OIF); PLATELET ESTIMATE SLT DEC (ADEQUATE)
[2016-10-23 04:29] LABS: BASOPHILS 0.3 %; BASOPHILS ABSOLUTE 0.02 10/3/uL (0.0-0.16); EOSINOPHILS 3.2 %; EOSINOPHILS ABSOLUTE 0.19 10/3/uL (0.0-0.53); HEMATOCRIT 36.4 % (36.0-48.0); HEMOGLOBIN 11.8 g/dL (12.0-16.0); IMMATURE GRANULOCYTES 0.2 %; IMMATURE GRANULOCYTES ABSOLUTE 0.01 10/3/uL (0.0-0.11); LYMPHOCYTES 30.5 %; LYMPHOCYTES ABSOLUTE 1.81 10/3/uL (0.67-4.30); MEAN CORPUS HGB CONC 32.4 g/dL (32.0-36.0); MEAN CORPUSCULAR HEMOGLOB 26.2 pg (26.0-34.0); MEAN CORPUSCULAR VOLUME 80.7 fL (80-100); MONOCYTES 9.6 %; MONOCYTES ABSOLUTE 0.57 10/3/uL (0.21-1.20); NEUTROPHILS 56.2 %; NEUTROPHILS ABSOLUTE 3.33 10/3/uL (2.02-8.40); PLATELET COUNT 116 10/3/uL (150-400); RBC DISTRIBUTION WIDTH 19.1 % (12.0-16.0); RED CELL COUNT 4.51 10/6/uL (4.0-5.6); WHITE BLOOD CELLS 5.9 10/3/uL (4.5-10.5)
[2016-10-23 04:34] LABS: MANUAL DIFF NO %
[2016-10-23 04:47] LABS: A/G RATIO 0.8 (0.7-1.9); BUN (BLOOD UREA NITROGEN) 21 MG/DL (6-23); CALCIUM, SERUM 9.6 MG/DL (8.5-10.4); CHLORIDE, SERUM 107 MMOL/L (96-112); CO2 (CARBON DIOXIDE) 22 MMOL/L (24-34); CREATININE 0.91 MG/DL (0.55-1.02); GFR AFRICAN AMERICAN 76 ML/MIN (>=60); GFR NON AFRICAN AMERICAN 65 ML/MIN (>=60); GLOBULIN 3.6 G/DL (2.5-4.1); POTASSIUM, SERUM 3.4 MMOL/L (3.5-5.3); SGOT(AST) 216 U/L (5-40); SGPT(ALT) 211 U/L (5-65); SODIUM, SERUM 140 MMOL/L (135-148); TOTAL BILIRUBIN 0.6 MG/DL (0-1.2); TOTAL PROTEIN 6.6 G/DL (6.0-8.5)
[2016-10-23 04:53] LABS: ALKALINE PHOSPHATASE 120 U/L (45-117); GLUCOSE, SERUM 89 MG/DL (60-99)
[2016-10-23 06:22] LABS: ANISOCYTOSIS 1+ (5-10/OIF) (0-5/OIF); HYPOCHROMIA 1+ (3-10/OIF) (0-2/OIF); PLATELET ESTIMATE DEC (ADEQUATE)
[2016-12-26] MEDS ORDERED: CINNAMONPO PO (14:41)
[2016-12-26] MEDS ORDERED: MAXITOINT OPH (14:43)
[2016-12-26] MEDS ORDERED: XALAT OPH (14:43)
== END 2016-10-23 16:17 | DRG 243 ==
LOC: ER 12:36 → CDU1 18:10 → 5NO 10-11 13:21
PROVIDERS: Emergency Medicine; Hospitalist; Internal Medicine; Nurse Practitioner Family
PROC: 0JH606Z Insertion of Pacemaker, Dual Chamber into Chest Subcutaneous Tissue and Fascia, Open Approach (ICD-10-PCS; principal; 2016-10-13)
PROC: 02H63JZ Insertion of Pacemaker Lead into Right Atrium, Percutaneous Approach (ICD-10-PCS; 2016-10-13)
PROC: 02HK3JZ Insertion of Pacemaker Lead into Right Ventricle, Percutaneous Approach (ICD-10-PCS; 2016-10-13)
DX: I48.0 Paroxysmal atrial fibrillation (principal); I69.351 Hemiplegia and hemiparesis following cerebral infarction affecting right dominant side; D69.6 Thrombocytopenia, unspecified; I49.5 Sick sinus syndrome; I10 Essential (primary) hypertension; D64.9 Anemia, unspecified; E11.9 Type 2 diabetes mellitus without complications; N39.0 Urinary tract infection, site not specified; I95.2 Hypotension due to drugs; F32.9 Major depressive disorder, single episode, unspecified; I25.10 Atherosclerotic heart disease of native coronary artery without angina pectoris; T45.516A Underdosing of anticoagulants, initial encounter; Z91.128 Patient's intentional underdosing of medication regimen for other reason; K21.9 Gastro-esophageal reflux disease without esophagitis; Z88.2 Allergy status to sulfonamides; I34.0 Nonrheumatic mitral (valve) insufficiency; F41.9 Anxiety disorder, unspecified; E78.2 Mixed hyperlipidemia; Z79.4 Long term (current) use of insulin; G47.33 Obstructive sleep apnea (adult) (pediatric); G40.909 Epilepsy, unspecified, not intractable, without status epilepticus
CPT/HCPCS: 33208; 70544; 70548; 70551; 71010; 74176; 74220; 76775; 80048; 80053; 80076; 81001; 82533; 82550; 82553; 82728; 82962; 83540; 83550; 83605; 83690; 83735; 83880; 84100; 84443; 84466; 84484; 85025; 85045; 85610; 85730; 87040; 93005; 96360; 97110-GO; 97161-GP; 97165-GO; 97530-GP; 97535-GO; 99285; A9270-GY; A9577; C1785; C1892; C1898; C9113; J0360; J0690; J2250; J2405; J3010; Q9967